=== PATIENT | female | born 1990 | race Caucasian/White ===

== ENCOUNTER 2019-07-22 11:46 | Outpatient (CLI) | payer OTHER, SELFPAY ==
[2019-07-23] MEDS: RHO(D) IMMUNE GLOBULIN 300 MCG SYRINGE IM (13:01)
== END 2019-07-22 11:47 | disposition home or self-care (01) ==
PROVIDERS: Visit Provider Obstetrics & Gynecology
DX: O02.1 Missed abortion (principal)
CPT/HCPCS: 36415; 84702; 86900; 86901; 90384; 96372; J2790

== ENCOUNTER 2019-07-24 08:31 | Emergency (ER) | payer OTHER, SELFPAY ==
--- NOTE | ~2019-07-24 | US_ITS ---
EXAMINATION: US OB <=14 wk fetus w TV DATE: 07/24/2019 11:13 INDICATION: Miscarriage TECHNIQUE: Real-time pelvic ultrasound utilizing both a transvaginal and transabdominal probe was pe rformed. The interpreting radiologist was not present for the study. COMPARISON: None. FINDINGS: The uterus measures 6.5 x 4.7 x 6.8 cm. There is a 2.4 x 0.7 x 1.7 cm anechoic fluid collection with a few thin linear internal echoes within the endocervical canal without definitive internal po le or yolk sac. There is an acutely tapered cephalad margin to the fluid with no definitive periphera l sac. The endometrial complex appears thickened with no definitive intrauterine gestational sac. The right ovary measures 1.9 x 1.9 x 2.7 cm. The left ovary measures 2.3 x 1.8 x 1.7 cm. There is no free fluid in the pelvis. IMPRESSION: 1. No definitive intrauterine gestational sac with differential including early, failed or ectopic pr egnancy. 2. Mildly complex fluid collection within the endocervical canal with no definitive yolk sac or pole. This could represent either blood or a gestational sac in the setting of in progress. Reviewed, dictated and finalized at location B. IMPRESSION: 1. No definitive intrauterine gestational sac with differential including early , failed or ectopic . 2. Mildly complex fluid collection within the endocervical canal with no defini tive yolk sac or pole. This could represent either blood or a gestational sac in the setting of in progress.
[2019-07-24 08:38] VITALS: BP 103/67; PULSE 66; RESP 16; TEMP 36.8; O2SAT 100
--- NOTE | 2019-07-24 08:47 | ED.FEMALEGU ---
HPI - Female Genitourinary General Chief complaint: Vaginal Bleeding Stated complaint: vag bleeding Time Seen by Provider: 07/24/19 08:43 Source: patient Mode of arrival: ambulatory Limitations: no limitations History of Present Illness HPI Narrative: Pt is a 29 y/o female who is 11 weeks , that presents to the ED with c/o vaginal bleeding that started 2 days ago and worsened this morning. Pt states that she has an 11 week chemical and knows that she will have a miscarriage. She states that at 0430 she started passing heavy clots. Pt notes that she was doubling up her pads and had to change them every 4 hours. She reports associated lightheadedness, dizziness, nausea, LEGGETT, and SOB upon exertion, but she denies vomiting or dysuria. Pt also notes that she gets lower ABD cramps that are intermittent and last a couple of hours. Her OBGYN is Dr. Levy and the pt called the office 2 days ago and she had blood work drawn to check her HCG levels. MD elicited complaint: vaginal bleeding Pertinent past history: prior miscarriages Onset (ago): day(s) (2) Location of symptoms: vaginal Severity: similar to previous episodes Quality of pain: cramping Consistency: intermittent Vaginal bleeding: heavy, clots and # pads per hour (4) Associated symptoms: abdominal pain, headaches, shortness of breath, nausea and other (dizziness, lightheadedness) Patient : Yes Related Data : 3 Para: 1 Total number of abortions (spontaneous and elective): 1 Home Medications Medication Instructions Recorded Confirmed No Home Medications 07/24/19 07/24/19 Allergies Allergy/AdvReac Type Severity Reaction Status Date / Time No Known Allergies Allergy Verified 04/17/19 18:18 Review of Systems Review of Systems: All systems reviewed & are unremarkable except as noted in HPI and below Cardiovascular: Cardiovascular: Reports lightheadedness Respiratory: Respiratory: Reports dyspnea on exertion Gastrointestinal: Gastrointestinal: Reports GI cramping (ABD), Reports nausea and Denies vomiting Genitourinary: Genitourinary: Reports abnormal vaginal bleeding and Denies dysuria Neurologic: Reports dizziness and Reports headache(s) [facility] Past Medical History Medical History (Updated 07/24/19 @ 11:35 by Won Sylvester MD) Miscarriage Surgical History Surgical History (Updated 07/24/19 @ 09:10 by Angela Mohamud) No significant past surgical history Family History Family History (Updated 04/17/19 @ 18:54 by SAVANNAH Ambrocio) Unknown Diabetes mellitus Social History Social History (Updated 07/24/19 @ 09:10 by Angela Mohamud) Smoking status: Never smoker Exam Const: General: healthy appearing, no acute distress and alert Orientation/consciousness: patient oriented x3 HENMT: Head: normal to inspection Neck: Neck: normal visual inspection Resp: Effort & Inspection: normal respiratory effort Auscultation: clear to auscultation bilaterally, no rales, no rhonchi and no wheezes Cardio: Rate: regular rate Rhythm: regular rhythm Heart sounds: no murmurs GI: Inspection: non-distended GI Palp: Yes abdominal tenderness (lower) and Yes Soft to palpation Skin: General skin exam: normal color Neuro: General: patient oriented x3 and moves all extremities Speech: normal speech Extrem: General: no edema Psych: Appearance: well kempt Affect: normal affect Course Course Emergency Course: Case discussed with Dr. Levy. He recommended D&C. She declined. Vital Signs Vital signs: Vital Signs Temperature 36.8 C 07/24/19 08:38 Pulse Rate 66 07/24/19 08:38 Respiratory Rate 16 07/24/19 08:38 Blood Pressure 103/67 07/24/19 08:38 Pulse Oximetry 100 07/24/19 08:38 Temperature 37.0 C 07/24/19 11:04 Pulse Rate 88 07/24/19 11:04 Respiratory Rate 16 07/24/19 11:04 Blood Pressure 100/56 L 07/24/19 11:04 Pulse Oximetry 100 07/24/19 11:04 MDM - Female Genitour
[2019-07-24] MEDS: SODIUM CHLORIDE 0.9% IV 1,000 ML 999 ML IV CONT (08:54)
[2019-07-24 09:05] LABS: Basophils Percent Auto 0.4 % (0.2-1.2); Eosinophils Absolute Auto 0.2 K/mm3 (0-0.3); Eosinophils Percent Auto 1.4 % (0-4.4); Hematocrit 34.7 % (37.0-47.0); Hemoglobin 11.3 g/dL (12.0-15.0); Immature Granulocyte Absolute 0.05 K/mm3 (0.00-0.031); Immature Granulocyte Percent A 0.5 % (0-0.5); Lymphocytes Absolute Auto 1.63 K/mm3 (0.9-3.2); Lymphocytes Percent Auto 15.6 % (18.3-44.2); Mean Corpuscular HGB Conc 32.6 g/dl (32-36); Mean Corpuscular Hemoglobin 31.2 pg (26-34); Mean Corpuscular Volume 95.9 fl (80-100); Mean Platelet Volume 10.3 fl (7.4-10.4); Monocytes Absolute Auto 0.8 K/mm3 (0.1-0.6); Monocytes Percent Auto 7.8 % (2.6-8.5); Neutrophils Absolute Auto 7.8 K/mm3 (1.3-6.7); Neutrophils Percent Auto 74.3 % (45.5-73.1); Platelet Count Result 203 k/mm3 (150-375); Red Blood Count 3.62 M/mm3 (4.2-5.4); Red Cell Distribution Width 11.9 % (11.5-14.5); White Blood Count 10.5 K/mm3 (4.5-10.0)
[2019-07-24 09:16] LABS: Blood Urea Nitrogen 7 mg/dL (7-17); Calcium 8.9 mg/dL (8.4-10.2); Carbon Dioxide 26 mmol/L (22-30); Chloride 102 mmol/L (98-107); Estimated CRCL calculation 107 ml/min; Estimated Glomerular Filt Rate > 60; Glucose 98 mg/dL (65-105); Potassium 3.7 mmol/L (3.4-5.0); Sodium 136 mmol/L (137-145)
[2019-07-24 09:21] LABS: Prothrombin Time 13.1 Seconds (11.1-14.7)
[2019-07-24 09:22] LABS: Partial Thromboplastin Time 28.4 SECONDS (22.3-36.8)
[2019-07-24 09:45] VITALS: BP 97/55; PULSE 84; RESP 16; TEMP 36.4; O2SAT 100
--- NOTE | 2019-07-24 10:43 | PC.NURSE ---
pt at ultrasound at this time
[2019-07-24 11:04] VITALS: BP 100/56; PULSE 88; RESP 16; TEMP 37; O2SAT 100
== END 2019-07-24 12:01 | disposition home or self-care (01) ==
PROVIDERS: Emergency Provider Emergency Medicine
DX: O03.4 Incomplete spontaneous abortion without complication (principal)
CPT/HCPCS: 36415; 76801; 76817; 80048; 84702; 85025; 85610; 85730; 86850; 86880; 86900; 86901; 86902; 96360; 99284; J7030

== ENCOUNTER 2019-11-11 08:03 | Outpatient (CLI) | payer OTHER, SELFPAY ==
--- NOTE | ~2019-11-11 | US_ITS ---
EXAMINATION: US OB <=14 wk fetus w TV DATE: 11/11/2019 10:08 INDICATION: Suppression of menstruation. TECHNIQUE: Real-time transabdominal and transvaginal pelvic ultrasound was performed. COMPARISON: Ultrasound 07/24/2019 FINDINGS: TRANSABDOMINAL ULTRASOUND: The uterus measures 8.4 x 7.5 x 5.4 cm. TRANSVAGINAL ULTRASOUND: There is an intrauterine gestational sac. A yolk sac is identified. The fet al crown rump length measures 1.0 cm, which correlates with an estimated gestational age of 7 weeks a nd 1 day(s) (+/-) 5 day(s). heart motion is identified measuring 157 beats per minute (bpm) by M-mode Doppler. The right ovary measures 2.5 x 2.9 x 1.5 cm. The left ovary measures 3.0 x 2.8 x 2.7 cm. There is no free fluid in the pelvis. IMPRESSION: 1. Single living intrauterine gestation with estimated date of delivery of 06/28/2020. Reviewed, dictated and finalized at location A. IMPRESSION: 1. Single living intrauterine gestation with estimated date of delivery of 06/28.
== END 2019-11-11 08:04 | disposition home or self-care (01) ==
PROVIDERS: Visit Provider Obstetrics & Gynecology
DX: Z34.91 Encounter for supervision of normal pregnancy, unspecified, first trimester (principal); Z3A.00 Weeks of gestation of pregnancy not specified
CPT/HCPCS: 76801; 76817

== ENCOUNTER 2019-12-07 09:01 | Outpatient (CLI) | payer OTHER, SELFPAY ==
[2019-12-07] MEDS: RHO(D) IMMUNE GLOBULIN 300 MCG SYRINGE IM (17:15)
== END 2019-12-07 09:02 | disposition home or self-care (01) ==
PROVIDERS: Visit Provider Obstetrics & Gynecology
DX: O20.9 Hemorrhage in early pregnancy, unspecified (principal); Z3A.00 Weeks of gestation of pregnancy not specified
CPT/HCPCS: 36415; 85461; 90384; 96372; J2790

== ENCOUNTER 2020-04-06 11:07 | Outpatient (RCR) | payer OTHER, SELFPAY ==
[2020-04-06 12:39] LABS: Hematocrit 34.8 % (37.0-47.0); Hemoglobin 11.7 g/dL (12.0-15.0); Mean Corpuscular HGB Conc 33.6 g/dl (32-36); Mean Corpuscular Hemoglobin 32.9 pg (26-34); Mean Corpuscular Volume 97.8 fl (80-100); Mean Platelet Volume 9.5 fl (7.4-10.4); Platelet Count Result 197 k/mm3 (150-375); Red Blood Count 3.56 M/mm3 (4.2-5.4); Red Cell Distribution Width 13.7 % (11.5-14.5); White Blood Count 10.4 K/mm3 (4.5-10.0)
[2020-04-06 12:50] LABS: Glucose 1 Hour PP 50gm Dose 147 mg/dL
[2020-04-06 13:32] LABS: HIV 1/2 Ab P24 Ag Result Negative (Negative)
[2020-04-06] MEDS: RHO(D) IMMUNE GLOBULIN 300 MCG SYRINGE IM (17:51)
== END 2020-07-05 23:59 | disposition home or self-care (01) ==
LOC: ANHLAB 11:07
PROVIDERS: Visit Provider Obstetrics & Gynecology
DX: Z29.13 Encounter for prophylactic Rho(D) immune globulin (principal); Z11.4 Encounter for screening for human immunodeficiency virus [HIV]; O36.0990 Maternal care for other rhesus isoimmunization, unspecified trimester, not applicable or unspecified; Z3A.00 Weeks of gestation of pregnancy not specified
CPT/HCPCS: 36415; 82947; 85027; 85461; 86703; 90384; 96372; G0432; J2790

== ENCOUNTER 2020-04-08 08:04 | Outpatient (CLI) | payer OTHER, SELFPAY ==
[2020-04-08 08:35] LABS: Glucose Fasting Gestational 87 mg/dL (>/=95)
[2020-04-08 10:24] LABS: Glucose 1 Hour Gest 191 mg/dL (>/=180)
[2020-04-08 11:44] LABS: Glucose 2 Hour Gest 170 mg/dL (>/= 155)
[2020-04-08 12:15] LABS: Glucose 3 Hour Gest 61 mg/dL (>/=140)
== END 2020-04-08 08:05 | disposition home or self-care (01) ==
PROVIDERS: Visit Provider Obstetrics & Gynecology
DX: R73.09 Other abnormal glucose (principal)
CPT/HCPCS: 36415; 82951; 82952

== ENCOUNTER 2020-06-15 09:31 | Outpatient (RCR) | payer OTHER, BC, SELFPAY ==
[2020-05-04 12:00] VITALS: BP 110/67; PULSE 71
[2020-05-11 10:29] VITALS: BP 110/66; PULSE 91
[2020-05-18 11:17] VITALS: BP 112/59; PULSE 85
[2020-05-25 10:38] VITALS: BP 107/58; PULSE 85
[2020-06-01 10:50] VITALS: BP 117/63; PULSE 77
--- NOTE | 2020-06-01 12:05 | PC.NURSE ---
Dr. Castro on unit and informed of U/S results.
[2020-06-08 11:08] VITALS: BP 118/67; PULSE 89
--- NOTE | ~2020-06-15 | US_ITS ---
US OB limited w BPP DATE: 05/25/2020 10:27 INDICATION: Gestational diabetes TECHNIQUE: Real-time imaging and Doppler analysis COMPARISON: 05/18/2020 Limited obstetrical ultrasound with biophysical profile FINDINGS: Live quiroz intrauterine gestation, fetus in longitudinal lie, vertex presentation. Feta l heart rate of 141 bpm. Posterior fundal placenta. Amniotic fluid index measures 16.4 cm, within normal range. BIOPHYSICAL PROFILE reported by mobile service rv technician: breathin out of 2 movement: 2 out of 2 tone: 2 out of 2 Amniotic fluid pocket: 2 out of 2 Total score: 8 out of 8 IMPRESSION: Normal biophysical profile score of 8 out of 8 Reviewed, dictated and finalized at Location A. Reviewed, dictated and finalized at location A. NG MACHINE FEEDER
--- NOTE | ~2020-06-15 | US_ITS ---
EXAMINATION: US OB BPP wo non-stress DATE: 06/15/2020 10:42 INDICATION: Gestational diabetes TECHNIQUE: Real-time pelvic ultrasound was performed. The interpreting radiologist was not present fo r the study. COMPARISON: None. FINDINGS: There is a single living fetus in vertex presentation. The placenta is posterior fundal. heart rate is 134 beats per minute (bpm). Biophysical profile performed by the technologist: breathing (30 sec sustained breathing in 30 minutes): 2 out of 2 movement (3 gross body movements in 30 minutes): 2 out of 2 tone (one episode of loqnjyp-rdmbzhora-nqxdszw limb movement): 2 out of 2 Amniotic fluid pocket (2 cm): 2 out of 2 Total score: 8 out of 8 IMPRESSION: 1. Single living fetus in vertex presentation with heart rate of 134 bpm. 2. Biophysical profile 8 out of 8. Reviewed, dictated and finalized at location A. N STYLIST
--- NOTE | ~2020-06-15 | US_ITS ---
EXAMINATION: US OB BPP wo non-stress EXAM DATE: 05/04/2020 11:56 INDICATION: Gestational diabetes. 3rd trimester. TECHNIQUE: Pelvic obstetrical transabdominal sonogram was performed by a technologist. There are mu ltiple grayscale and Doppler images available for interpretation. FINDINGS: There is a single fetus identified in vertex presentation with a heart rate of 133 beats pe r minute. The placenta is located in the posterior position. There is no sonographic evidence of ret roplacental hemorrhage identified. There is subjectively expected amount of amniotic fluid. BIOPHYSICAL PROFILE (performed by the technologist) breathing (30 sec sustained breathing in 30 minutes): 2 out of 2 movement (3 gross body movements in 30 minutes): 2 out of 2 tone (one episode of lgthoqr-rgapaftdx-odckwlz limb movement): 2 out of 2 Amniotic fluid pocket (2 cm): 2 out of 2 Total score: 8 out of 8 IMPRESSION: 1. Single fetus with heart rate of 133 bpm. 2. Normal biophysical profile score of 8 out of 8. Reviewed, dictated and finalized at location B. AND OUT CIGAR MAKER HAND
--- NOTE | ~2020-06-15 | US_ITS ---
EXAMINATION: US OB BPP wo non-stress DATE: 05/11/2020 10:28 INDICATION: Gestational diabetes. Third trimester. History of subchorionic hemorrhage. TECHNIQUE: Real-time pelvic ultrasound was performed. COMPARISON: Ultrasound 05/04/2020 FINDINGS: There is a single living fetus in vertex presentation. The placenta is posterior. heart rate i s 147 beats per minute (bpm). Biophysical profile performed by the technologist: breathing (30 sec sustained breathing in 30 minutes): 2 out of 2 movement (3 gross body movements in 30 minutes): 2 out of 2 tone (one episode of xowozoa-mfuspxcin-cdativx limb movement): 2 out of 2 Amniotic fluid pocket (2 cm): 2 out of 2 Total score: 8 out of 8 IMPRESSION: 1. Single living fetus in vertex presentation. 2. Biophysical profile 8 out of 8. Reviewed, dictated and finalized at location B. SSION SPECIALIST
--- NOTE | ~2020-06-15 | US_ITS ---
EXAMINATION: US OB limited w BPP DATE: 05/18/2020 10:42 INDICATION: Maternal gestational diabetes. Subchorionic hematoma. TECHNIQUE: Real-time pelvic ultrasound was performed. The interpreting radiologist was not present fo r the study. COMPARISON: 05/11/2020 FINDINGS: There is a single living fetus in vertex presentation. The placenta is posterior fundal. Small cresc entic hypoechoic region along the cephalad margin of the placenta consistent with a very small subcho rionic hematoma which measures 1.8 x 0.6 x 0.3 cm. heart rate is 141 beats per minute (bpm). No rmal amniotic fluid index of 15.4 cm (5th%-95%: 8.1-24.8 cm at 34 weeks estimated gestational age). Biophysical profile performed by the technologist: breathing (30 sec sustained breathing in 30 minutes): 2 out of 2 movement (3 gross body movements in 30 minutes): 2 out of 2 tone (one episode of oezppou-xeswbwktq-osyukax limb movement): 2 out of 2 Amniotic fluid pocket (2 cm): 2 out of 2 Total score: 8 out of 8 IMPRESSION: 1. Single living fetus in vertex presentation with heart rate of 141 bpm. 2. Biophysical profile 8 out of 8. 3. Very small subchorionic hematoma. 4. Normal amniotic fluid index of 15.4 cm. Reviewed, dictated and finalized at location B. OR ELECTRICAL ENGINEER
--- NOTE | ~2020-06-15 | US_ITS ---
EXAMINATION: US OB follow up w BPP DATE: 06/01/2020 10:41 INDICATION: Evaluate growth and amniotic fluid index TECHNIQUE: Real-time ultrasound of the pelvis was performed. The interpreting radiologist was not pre sent for the study. COMPARISON: Comparison to multiple prior studies sequentially, with oldest reviewed study dated 11/10. FINDINGS: There is a single living fetus in vertex presentation. The placenta is posterior. cardiac acti vity and movement are noted. heart rate is 1:30 beats per minute (bpm). The amniotic flui d index is 17 cm, which is normal. The following biometric data were obtained: BPD: 89 cm corresponds to gestational age 36 weeks 0 day(s). Head circumference: 313 cm corresponds to gestational age 35 weeks 1 day(s). Abdominal circumference: 310 cm corresponds to gestational age 35 weeks 0 day(s). Femur length: 69 cm corresponds to gestational age 35 weeks 1 day(s). Head circumference to abdominal circumference ratio: 1.01, normal for gestational age is 0.93-1.1. Estimated weight: 2607 g plus or minus 391 g, 16.9 percentile. Biophysical profile performed by the technologist: breathing (30 sec sustained breathing in 30 minutes): 2 out of 2 movement (3 gross body movements in 30 minutes: 2 out of 2 tone (one episode of qnbntio-yxcamicgf-ahlmisx limb movement): 2 out of 2 Amniotic fluid pocket (2 cm): 2 out of 2 Total score: 8 out of 8 IMPRESSION: 1. Single living fetus in vertex presentation with heart rate of 130 bpm. 2. Normal placenta. 3. Biophysical profile 8 out of 8. 4. Gestational age by initial ultrasound of 36 weeks 1 day(s) with ultrasound estimated date of toni serna ([facility]) of 06/28/2010. Appropriate interval growth. Reviewed, dictated and finalized at location B. LANE GASTANK LINER ASSEMBLER IMPRESSION: 1. Single living fetus in vertex presentation with heart rate of 130 bpm. 2. Normal placenta. 3. Biophysical profile 8 out of 8. 4. Gestational age by initial ultrasound of 36 weeks 1 day(s) with ultrasound e stimated date of delivery ([facility]) of 06/28/2010. Appropriate interval growt h.
--- NOTE | ~2020-06-15 | US_ITS ---
US OB limited, US OB BPP wo non-stress DATE: 06/08/2020 10:49 INDICATION: Gestational diabetes mellitus TECHNIQUE: Real-time imaging and Doppler analysis. Biophysical profile. COMPARISON: obstetrical ultrasound with biophysical profile FINDINGS: Live quiroz intrauterine gestation, fetus in vertex presentation, longitudinal lie. Post erior placenta. cardiac motion is noted with Doppler heart rate of 138 bpm. Subjectively normal amount of amniotic fluid. Amniotic fluid index measures 10.2 cm. (5th percentile MOLLY: 7.5 cm; 95th percentile MOLLY: 24.4 cm). BIOPHYSICAL PROFILE reported by lead quality control technician: breathin out of 2 movement: 2 out of 2 tone: 2 out of 2 Amniotic fluid pocket: 2 out of 2 Total score: 8 out of 8 IMPRESSION: Normal biophysical profile score of 8 out of 8 MOLLY: 10.2 cm, within lower limits of normal range of 7.5-24.4 cm Reviewed, dictated and finalized at Location A. Reviewed, dictated and finalized at location B. ORATE OPERATIONS COMPLIANCE MANAGER IMPRESSION: Normal biophysical profile score of 8 out of 8 MOLLY: 10.2 cm, within lower limits of normal range of 7.5-24.4 cm
[2020-06-15 10:45] VITALS: BP 117/73; PULSE 82
== END 2020-06-22 07:57 | disposition home or self-care (01) ==
LOC: ANHOBOP 09:31
PROVIDERS: Visit Provider Obstetrics & Gynecology
DX: O24.419 Gestational diabetes mellitus in pregnancy, unspecified control (principal); Z3A.32 32 weeks gestation of pregnancy; Z3A.33 33 weeks gestation of pregnancy; O41.8X30 Other specified disorders of amniotic fluid and membranes, third trimester, not applicable or unspecified; Z3A.34 34 weeks gestation of pregnancy; Z3A.35 35 weeks gestation of pregnancy; Z3A.36 36 weeks gestation of pregnancy; Z3A.37 37 weeks gestation of pregnancy; Z3A.38 38 weeks gestation of pregnancy
CPT/HCPCS: 59025; 76815; 76816; 76819

== ENCOUNTER 2020-06-20 06:35 | Inpatient (IN) | payer OTHER, BC, SELFPAY ==
[2020-06-20] VITALS (80 sets, daily range): BP systolic 97–249; BP diastolic 40–230; PULSE 31–196; RESP 16; TEMP 36.6–36.8; O2SAT 79–100; BMI 27.0
--- NOTE | 2020-06-20 06:35 | LDADM ---
This patient, Radha Colon, was admitted to Labor/Delivery/Recovery 104 on 06/20/20 at 06:35. Plans for labor, pain management and were discussed with patient. Patient/family oriented to hospital policies and general routines including ID bracelet, bed and alarms, visiting hours, pain management, procedures, bathroom and other care routines, personal items, smoking policy, room service/diet and guest tray routines, security routines, and visiting hours. Patient/Family are encouraged to report perceived risks to care and to ask questions if they do not understand what they are told or what they should do. See OBIX for further documentation.
--- OUTSIDE RECORDS SUMMARY | 2020-06-20 06:41 | XMS_ITS ---
:1990 Author Care Team Providers Name Role Phone [facility] Primary Care Provider Unavailable Allergies Code Code System Name Reaction Severity Status Onset NKDA ? Medications Name Status Start Date Stop Date ? ? Accu-Chek Guide Glucose Meter Active ? No t available USE DIRECTED Accu-Chek Guide test strips Active ? Not available Take 112 strips 4 times a day by miscell. route. Accu-Chek Softclix Lancets Active ? Not a vailable Afluria Qd (36 mos up)(PF)60 mcg (15 mcg x4)/0.5 mL IM s yringe Active ? Not available ADM 0.5ML IM UTD alcohol sterile prep pads 100's Active ? Not available APPLY 1 PAD BY TOPICAL ROUTE DIRECTED alcohol swabs Active ? Not available Apply 1 pad by topical route. Boostrix Tdap 2.5 Lf unit-8 mcg-5 Lf/0.5 mL intramuscular syring e Active ? Not available ADMINISTER 0.5ML IN THE MUSCLE DIRECTED clindamycin 1 % lotion Unknown ? Not avail able APPLY QAM TO ACNE clindamycin phosphate 1 % topical solution Unknown ? Not available APPLY TO ACNE D AT 4 PM. clomiphene citrate 50 mg tablet Completed ? 06/11/2019 TK 1 T PO QD X 5 DAYS Finacea 15 % topical gel Unknown ? Not mikhail ilable APPLY AA QHS UTD ibuprofen 400 mg tablet Unknown ? Not avai lable oxycodone-acetaminophen 5 mg-325 mg Unknown ? Not available tablet Notes: PNV; Fe supplement BID Problems Name Status O
--- OUTSIDE RECORDS SUMMARY | 2020-06-20 06:42 | XMS_ITS | Encounter Summary ---
:1990 Author Reason for Visit return OB visit Assessment and Plan 1. Routine care 2. Gestational diabetes mellitus 3. Subchorionic hematoma Discussion Note: None recorded.Patient educational handouts: No information available. Plan of Care Reminders Provider Appointments None ? ? recorded. Lab None ? ? recorded. Referral None ? ? recorded. Procedures None ? ? recorded. Surgeries None ? ? recorded. Imaging None ? ? recorded. Medications Name Start Date ? ? Accu-Chek Guide Glucose Meter ? USE DIRECTED Accu-Chek Guide test strips ? Take 112 strips 4 times a day by miscell. route. Accu-Chek Softclix Lancets ? Afluria Qd 2019- (36 mos up)(PF)60 mcg (15 mcg x4)/0 .5 mL IM syringe ? ADM 0.5ML IM UTD alcohol sterile prep pads 100's ? APPLY 1 PAD BY TOPICAL ROUTE DIRECTED alcohol swabs ? Apply 1 pad by topical route. Boostrix Tdap 2.5 Lf unit-8 mcg-5 Lf/0.5 mL intramuscu lar syringe ? ADMINISTER 0.5ML IN THE MUSCLE DIRECTED Notes: PNV; Fe supplement BID Medications Administered None recorded. Vitals Weight Blood Pressure 179 lbs 116/78 mm[Hg] Results Lab Results
--- OUTSIDE RECORDS SUMMARY | 2020-06-20 06:42 | XMS_ITS | Encounter Summary ---
:1990 Author Reason for Visit return OB visit Assessment and Plan 1. Routine care Discussion Note: None recorded.Patient educational handouts: No [...] Administered None recorded. Vitals Weight Blood Pressure 184 lbs 112/62 mm[Hg] Results Lab Results None recorded. Allergies Code Code System Name Reaction Severity Onset
--- OUTSIDE RECORDS SUMMARY | 2020-06-20 06:42 | XMS_ITS | Encounter Summary ---
:1990 Author Reason for Visit return OB visit Assessment and Plan 1. Routine care 2. Gestational diabetes mellitus 3. Marginal placental hemorrhage Discussion Note: None recorded.Patient educational handouts: No [...] recorded. Vitals Weight Blood Pressure 179 lbs 118/72 mm[Hg] Results Lab Results
--- OUTSIDE RECORDS SUMMARY | 2020-06-20 06:42 | XMS_ITS | Encounter Summary ---
:1990 Author Reason for Visit return OB visit Assessment and Plan 1. Gestational diabetes mellitus 2. Subchorionic hematoma Discussion Note: None recorded.Patient educational [...] route. Accu-Chek Softclix Lancets ? Afluria Qd (36 mos up)(PF)60 mcg (15 mcg x4)/0 [...] Administered None recorded. Vitals Weight Blood Pressure 177.8 lbs 120/72 mm[Hg] Results Lab Results None recorded. Allergies Code Code S
--- OUTSIDE RECORDS SUMMARY | 2020-06-20 06:42 | XMS_ITS | Encounter Summary ---
:1990 Author Reason for Visit return OB visit Assessment and Plan 1. Routine care ? streptococcus group B, cul ture, vaginal or rectal 2. Gestational diabetes mellitus ? US, obstetric, 3rd trimest er Discussion Note: None recorded.Patient educational handouts: No information available. Plan of Care Reminders Provider Appointments None recorded. ? ? Lab Streptococcus And erson Group B, Culture, Vaginal [facility] or Rectal Referral None recorded. ? ? Procedures None recorded. ? ? Surgeries None recorded. ? ? Imaging US, Obstetric, [facility] 3Rd Trimester 05/27/2020 [facility] ([facility] Scheduling) Medications Name Start Date ? ? Accu-Chek [...]
--- OUTSIDE RECORDS SUMMARY | 2020-06-20 06:42 | XMS_ITS | Encounter Summary ---
:1990 Author Reason for Visit return OB visit Assessment and Plan 1. Routine care ? glucose tolerance test, ge stational, 1-hour ? HIV (1+2) Ab screen, serum ? CBC ? Rh immune globulin screeni ng Discussion Note: None recorded.Patient educational handouts: No information available. Plan of Care Reminders Provider Appointments None ? ? recorded. Lab Glucose [facility] Tolerance Test, 03/22/2020 (Lab) Gestational, 1-Hour ? HIV (1+2) Ab [facility] Screen, Serum 03/22/2020 (Lab) ? [facility] 03/22/2020 (Lab) ? Rh Immune [facility] Globulin Screening 03/22/2020 (Lab) Referral None ? ? recorded. Procedures None ? ? recorded. Surgeries None ? ? recorded. Imaging None ? ? recorded. Medications Name Start Date ? ? Accu-Chek Guide Glucose Meter ? USE DIRECTED Accu-Chek Guide test strips ? Take 112 strips 4 times a day by miscell. route.
--- OUTSIDE RECORDS SUMMARY | 2020-06-20 06:42 | XMS_ITS | Encounter Summary ---
[...] supplement BID Medications Administered None recorded. Vitals Height Weight Blood Pressure 5 ft 8 in 185 lbs 120/77 mm[Hg] Results Lab Results None recorded. Allergies Code Code System Name Reaction Severity Onset
--- OUTSIDE RECORDS SUMMARY | 2020-06-20 06:42 | XMS_ITS | Encounter Summary ---
:1990 Author Reason for Visit return OB visit Assessment and Plan 1. Routine care 2. Gestational diabetes mellitus ? induction of labor (PROC) Discussion Note: None recorded.Patient educational handouts: No information available. Plan of Care Reminders Provider Appointments None ? ? recorded. Lab None ? ? recorded. Referral None ? ? recorded. Procedures Induction of [facility] Labor (PROC) 06/20/2020 (Admitting) Surgeries None ? ? recorded. Imaging None [...] Weight Blood Pressure 5 ft 8 in 183 lbs 104/60 mm[Hg]
[2020-06-20 07:24] LABS: Basophils Percent Auto 0.4 % (0.2-1.2); Eosinophils Absolute Auto 0.1 K/mm3 (0-0.3); Eosinophils Percent Auto 0.8 % (0-4.4); Hematocrit 38.5 % (37.0-47.0); Hemoglobin 13.4 g/dL (12.0-15.0); Immature Granulocyte Absolute 0.05 K/mm3 (0.00-0.031); Immature Granulocyte Percent A 0.6 % (0-0.5); Lymphocytes Absolute Auto 0.94 K/mm3 (0.9-3.2); Lymphocytes Percent Auto 11.2 % (18.3-44.2); Mean Corpuscular HGB Conc 34.8 g/dl (32-36); Mean Corpuscular Hemoglobin 33.9 pg (26-34); Mean Corpuscular Volume 97.5 fl (80-100); Mean Platelet Volume 10.7 fl (7.4-10.4); Monocytes Absolute Auto 0.8 K/mm3 (0.1-0.6); Monocytes Percent Auto 9.4 % (2.6-8.5); Neutrophils Absolute Auto 6.5 K/mm3 (1.3-6.7); Neutrophils Percent Auto 77.6 % (45.5-73.1); Platelet Count Result 153 k/mm3 (150-375); Red Blood Count 3.95 M/mm3 (4.2-5.4); Red Cell Distribution Width 12.6 % (11.5-14.5); White Blood Count 8.4 K/mm3 (4.5-10.0)
[2020-06-20 07:26] LABS: Glucose Point of Care 83 (65-105)
[2020-06-20] MEDS: LACTATED RINGERS 1,000 ML 125 ML IV CONT ×2 (07:35→11:36)
[2020-06-20] MEDS: AMPICILLIN 2 GM/NS 100 ML 2 GM/100 ML BAG IVPB (07:35)
[2020-06-20] MEDS: OXYTOCIN 30 UNITS/NS 500 ML 30 UNITS/500 ML BAG IV CONT (07:36)
[2020-06-20 09:56] LABS: Rapid Plasma Reagin Non-Reactive (NonReactive)
[2020-06-20] MEDS: AMPICILLIN 1 GM/NS 50 ML 1 GM/50 ML BAG IVPB (11:36)
--- NOTE | 2020-06-20 12:10 | WPDANESEPP ---
Anes - Eval Pre Procedure Procedure: LAbor epidural Date/Time: 06/20/20 12:10 Surgeon: Matthew Preop Diagnosis: Abd pain with contractions Pre Op Diagnosis: Induction of Labor Patient Data Age: 30 Gender: F Height: 5 ft 9 in Weight: 83 kg Last Vital Signs Temp 98.3 F 06/20/20 07:30 Pulse 65 06/20/20 12:10 BP 126/71 06/20/20 12:10 Pulse Ox 100 06/20/20 12:06 Allergies Allergy/AdvReac Type Severity Reaction Status Date / Time No Known Allergies Allergy Verified 05/31/20 12:39 Home Medications Medication Instructions Recorded Confirmed Type PNV cmb#95-ferrous fumarate-FA 1 tablet PO DAILY 05/04/20 06/15/20 History [] ferrous sulfate 325 mg PO BID 05/04/20 06/15/20 History Laboratory Tests 06/20/20 06/20/20 06/20/20 07:17 07:17 07:18 WBC 8.4 K/mm3 K/mm3 (4.5-10.0) RBC 3.95 M/mm3 L M/mm3 (4.2-5.4) Hgb 13.4 g/dL g/dL (12.0-15.0) Hct 38.5 % % (37.0-47.0) MCV 97.5 fl fl (80-100) MCH 33.9 pg pg (26-34) MCHC 34.8 g/dl g/dl (32-36) RDW 12.6 % % (11.5-14.5) Plt Count 153 k/mm3 k/mm3 (150-375) MPV 10.7 fl H fl (7.4-10.4) Immature Gran % (Auto) 0.6 % H % (0-0.5) Neut % (Auto) 77.6 % H % (45.5-73.1) Lymph % (Auto) 11.2 % L % (18.3-44.2) [place] % (Auto) 9.4 % H % (2.6-8.5) Eos % (Auto) 0.8 % % (0-4.4) Baso % (Auto) 0.4 % % (0.2-1.2) Lymph # (Auto) 0.94 K/mm3 K/mm3 (0.9-3.2) [place] # (Auto) 0.8 K/mm3 H K/mm3 (0.1-0.6) Eos # (Auto) 0.1 K/mm3 K/mm3 (0-0.3) Baso # (Auto) 0.0 K/mm3 K/mm3 (0.0-0.1) Abs Immat Gran (auto) 0.05 K/mm3 H K/mm3 (0.00-0.031) Absolute Neuts (auto) 6.5 K/mm3 K/mm3 (1.3-6.7) Absolute Nucleated RBC 0.0 K/mm3 K/mm3 (0.0-0.012) Nucleated RBC % 0.0 % % (0.0-0.2) POC Capillary Glucose RPR Non-reactive (NonReactive) Blood Type O Negative Antibody Screen Negative 06/20/20 07:23 WBC RBC Hgb Hct MCV MCH MCHC RDW Plt Count MPV Immature Gran % (Auto) Neut % (Auto) Lymph % (Auto) [place] % (Auto) Eos % (Auto) Baso % (Auto) Lymph # (Auto) [place] # (Auto) Eos # (Auto) Baso # (Auto) Abs Immat Gran (auto) Absolute Neuts (auto) Absolute Nucleated RBC Nucleated RBC % POC Capillary Glucose 83 mg/dl mg/dl (65-105) RPR Blood Type Antibody Screen Patient hx anesthesia problems: none Family hx anesthesia problems: none PMFSH Past Medical History Medical History (Updated 06/20/20 @ 12:11 by Preston Kruger CRNA) Gestational diabetes Miscarriage Surgical History Surgical History No significant past surgical history Family History Family History Grandparent Diabetes type 2, controlled Lung cancer Breast cancer Leukemia Mother Breast cancer Social History Social History (Updated 07/24/19 @ 09:10 by Angela Mohamud) Smoking status: Never smoker Substance use: never Spiritual care concerns: No Exam Day of Procedure 06/20/20 12:10 Patient weight: normal Heart: regular rate and rhythm Lungs: clear to auscultation Airway: Mallampati scale class II Neurological: alert and oriented
--- NOTE | 2020-06-20 12:51 | PM.IMHP ---
H&P: HPI History of Present Illness Date/Time: 06/20/20 12:51 Chief Complaint: Induction of labor Narrative: Radha Colon is a 30 year old female at 39w1d presenting or schedule induction of labor. was complicated by gestational diabetes which was diet controlled as well as subchorionic hemorrhage but she was stable and bleeding was limited to early . Review of Systems Constitutional: Constitutional: Reports no additional constitutional complaints Eyes: Eyes: Reports no additional eye complaints ENT: Reports system reviewed and no additional complaints, except as documented Cardiovascular: Cardiovascular: Reports no additional cardiovascular complaints Respiratory: Respiratory: Reports no additional respiratory complaints Gastrointestinal: Gastrointestinal: Reports no additional gastrointestinal complaints Genitourinary: Genitourinary: Reports no additional female genitourinary complaints Musculoskeletal: Musculoskeletal: Reports no additional musculoskeletal complaints Integumentary/Breasts: Skin/Breast: Reports system reviewed and no additional complaints, except as docu Neurologic: Reports system reviewed and no additional complaints, except as documented Psychiatric: Psychiatric: Reports no additional psychiatric complaints Endocrine: Endocrine: Reports no additional endocrine complaints Hematologic/Lymphatic: Hematologic/Lymphatic: Reports no additional hematologic/lymphatic complaints Allergic/Immunologic: Allergic/Immunologic: Reports no additional allergic/immunologic complaints PMFSH Past Medical History Medical History Gestational diabetes Miscarriage Surgical History Surgical History No significant past surgical history Family History Family History Grandparent Diabetes type 2, controlled Lung cancer Breast cancer Leukemia Mother Breast cancer Social History Social History (Updated 07/24/19 @ 09:10 by Angela Mohamud) Smoking status: Never smoker Substance use: never Spiritual care concerns: No Meds Home Medications and Allergies Home Medications Medication Instructions Recorded Confirmed Type PNV cmb#95-ferrous fumarate-FA 1 tablet PO DAILY 05/04/20 06/15/20 History [] ferrous sulfate 325 mg PO BID 05/04/20 06/15/20 History Allergies Allergy/AdvReac Type Severity Reaction Status Date / Time No Known Allergies Allergy Verified 05/31/20 12:39 Vital Signs Vital Signs - 24 hr 06/20/20 07:02 06/20/20 07:16 06/20/20 07:30 Temperature 36.8 C Pulse Rate 93 82 Blood Pressure 117/72 114/73 Pulse Oximetry 06/20/20 07:31 06/20/20 07:46 06/20/20 08:01 Temperature Pulse Rate 76 76 80 Blood Pressure 120/72 116/67 114/71 Pulse Oximetry 06/20/20 08:16 06/20/20 08:31 06/20/20 08:46 Temperature Pulse Rate 95 77 75 Blood Pressure 128/76 123/67 121/73 Pulse Oximetry 06/20/20 09:01 06/20/20 09:16 06/20/20 09:31 Temperature Pulse Rate 71 76 71 Blood Pressure 119/72 123/71 123/67 Pulse Oximetry 06/20/20 09:46 06/20/20 10:01 06/20/20 10:16 Temperature Pulse Rate 86 92 73 Blood Pressure 123/76 130/79 124/69 Pulse Oximetry 06/20/20 10:31 06/20/20 10:46 06/20/20 11:01 Temperature Pulse Rate 87 75 75 Blood Pressure 117/81 123/75 126/72 Pulse Oximetry 06/20/20 11:14 06/20/20 11:16 06/20/20 11:17 Temperature Pulse Rate 82 75 Blood Pressure 133/78 120/79 Pulse Oximetry 100 06/20/20 11:21 06/20/20 11:26 06/20/20 11:27 Temperature Pulse Rate 79 75 Blood Pressure 126/70 121/69 Pulse Oximetry 98 100 06/20/20 11:29 06/20/20 11:31 06/20/20 11:34 Temperature Pulse Rate 76 79 75 Blood Pressure 124/70 127/73 119/74 Pulse Oximetry 100 06/20/20 11:36 06/20/20 11:37 06/20/20
[2020-06-20 13:01] LABS: Glucose Point of Care 70 (65-105)
--- NOTE | 2020-06-20 13:13 | WPDHPUPDATE1 ---
History and Physical Update Update Date/Time: 06/20/20 13:13 History and Physical has been reviewed, including an updated exam of the patient. There are NO changes in the patient's condition. Risks, benefits, and alternatives have been discussed and questions answered. Patient agrees to proceed with procedure.
--- NOTE | 2020-06-20 15:32 | P.PCNOB_ITS ---
OB - Delivery Note Procedure Delivery date: 06/20/20 Procedure: Normal spontaneous vaginal delivery Intrapartal events: None Induction method: AROM and per pitocin protocol Delivery monitor: external FHT and external uterine Route of delivery: Laceration Description: Perineal - 2nd Degree Delivery repair: vicryl Specimen: Yes Quantitative Blood Loss (ml): 300 Anesthesia type: Epidural Narrative: Once she was noted to be complete and ready to push, the labor bed was broken down and legs were placed in stirrups for support. With contractions and maternal efforts, the presented in OA position. The head was del ivered. Checked for nuchal cord, no nuchal cord noted. Gentle downward traction was applied and the anterior shoulder delivered without issues, followed by the posterior shoulder and rest of the body. was vigorous and crying, so delayed cord clamping of approximately 1 minute was performed. The cord was clamped and cut. Cord gasses collected. Placenta was delivered spontaneously with gentle cord traction. IV oxytocin administered and fundal massage applied. Exam was performed to identify any lacerations. 2nd degree perineal laceration was repaired with 2-0 Vicryl. Good hemostasis noted. Patient tolerated the procedure well. All instrument and sponge counts were correct at the end of the procedure. [place] Baby Date of : 06/20/20 Time of : 15:04 Weeks of gestation at delivery: 39 Infant gender: Male Weight (pounds): 8 Weight (ounces): 10 presentation: vertex position: Left Occiput Anterior Placenta delivery description: Spontaneous cord vessel description: 3 Vessels score one minute: 9 score five minutes: 9
[2020-06-20] MEDS: OXYTOCIN 30 UNITS/NS 500 ML 30 UNITS/500 ML BAG 125 UNITS IV CONT (15:51)
[2020-06-20] MEDS: WITCH HAZEL 40 PADS 1 PAD TOPICAL (17:51)
[2020-06-20] MEDS: BENZOCAINE 20% AER SPR (*SP) 56 GM CAN 1 SPRAY TOPICAL (17:51)
--- NOTE | 2020-06-20 18:44 | OBPPTRN ---
Patient transferred to post room #284 via wheelchair. Support person present. Oriented to unit, room, information board, rooming in, admission packet and security measures. Patient verbalizes understanding.
[2020-06-20] MEDS: IBUPROFEN 600 MG TABLET PO (18:53)
[2020-06-21 04:00] VITALS: BP 105/60; PULSE 67; RESP 16; TEMP 36.7; O2SAT 98
[2020-06-21] MEDS: IBUPROFEN 600 MG TABLET PO ×2 (04:47→14:12)
[2020-06-21 04:51] LABS: Hematocrit 33.4 % (37.0-47.0); Hemoglobin 11.3 g/dL (12.0-15.0)
[2020-06-21] MEDS: DOCUSATE SODIUM 100 MG CAPSULE PO (07:30)
[2020-06-21] MEDS: MULTIVIT/MIN/PREN/FOL AC/IRON TABLET 1 TAB PO (07:30)
[2020-06-21] MEDS: BENZOCAINE 20% AER SPR (*SP) 56 GM CAN 1 SPRAY TOPICAL (07:30)
[2020-06-21 08:00] VITALS: BP 105/65; PULSE 76; RESP 18; TEMP 36.8; O2SAT 99
--- NOTE | 2020-06-21 08:13 | WPDANLDPN2 ---
Anes-Prog Note L&D Date/Time: 06/21/20 08:13 Comfortable throughout: labor and delivery Neuraxial method: epidural Epidural/Spinal procedure site: clean & non-tender Neuro status: Neuro function grossly intact. Cardiovascular status: normal Respiratory status: normal Airway patency: baseline Mental status: baseline Post-Op hydration status: normal Vital Signs: Last Vital Signs Temp 36.7 C 06/21/20 04:00 Pulse 67 06/21/20 04:00 Resp 16 06/21/20 04:00 BP 105/60 06/21/20 04:00 Pulse Ox 98 06/21/20 04:00 Pain score (VAS): 3 I/O: Intake & Output 06/20/20 06/21/20 06/21/20 23:59 07:59 15:59 Intake Total 500 Balance 500 Post-procedural complaints: none Patient feedback: Patient satisfied with anesthetic care.
--- NOTE | 2020-06-21 10:30 | PC.NURSE ---
Consulted with patient, mother reports infant fed well first two feedings, then sleepy and bottle fed during the night a few times. Mother pumped and bottle fed with first child. was circumcised within an hour and sleepy. Assured parents this is normal. Reviewed feeding cues, frequencies, duration of feedings, feeding elimination flow sheet, and signs of adequate intake. Demonstrated stimulation techniques to wake infant for feeding. very sleepy with hiccups. Advised to allow to rest for 30 minutes and attempt again. Call out before if infant wakes or rooting noted.
--- NOTE | 2020-06-21 10:40 | PC.NURSE ---
Mother called out for assist with feeding. Infant remains sleepy, demonstrated stimulation techniques to wake for feeding. Reviewed feeding cues, frequencies, duration of feedings, feeding elimination flow sheet, and signs of adequate intake. Assisted with infant to breast. Reviewed positioning/alignment in cross cradle, holding breast in U hold and guided asymmetrical latch on. was able to latch correctly within a few attempts. Demonstrated how to adjust latch more deeply while feeding. Advised to stimulate to keep infant awake and nursing for increased stimulation and increased intake. Infant nursed eagerly, with steady draws and [frequent/occasional] swallowing noted. Reviewed signs of a correct latch, effective nursing and suck swallow ratio. Infant was able to maintain latch without discomfort to mother. Nipple care reviewed, lanolin provided. Instructed mother to call out for RN assistance if she is unable to latch infant for feeding or she has discomfort with nursing. Instructed feeding should be initiated three hours from start of last feeding or if feeding cues are noted before. Mother voiced understanding of information shared.
[2020-06-21] MEDS: RHO(D) IMMUNE GLOBULIN 300 MCG SYRINGE IM (11:05)
[2020-06-21] MEDS: MEASLES,MUMPS,RUBELLA VACCINE 0.5 ML VIAL SUB-Q (11:06)
[2020-06-21 11:07] VITALS: BP 106/55; PULSE 85; RESP 18; TEMP 36.7; O2SAT 98
--- NOTE | 2020-06-21 11:33 | PM.OBPNVD ---
OB - PN: Subj Subjective Date/time seen: 06/21/20 11:33 s/p on 06/20. Doing well, pain is controlled. Lochia is decreasing. Breast feeding. Ambulating without issues. Tolerating diet. OB - PN: Obj Data Labs CBC & Chem 7: 06/21/20 04:43 Labs: Laboratory Results - last 24 hr 06/20/20 06/21/20 06/21/20 12:37 04:42 04:43 Hgb 11.3 L Hct 33.4 L POC Capillary Glucose 70 Blood Type O Negative Antibody Screen TNP Screen Negative Baby's Blood Type O pos Baby's ALONDRA Negative Doses of RhIg Required 1 OB - PN A/P Assessment and Plan (1) (normal spontaneous vaginal delivery): Code(s): O80 - Encounter for full-term uncomplicated delivery Status: Acute Assessment and Plan: Routine care Pain management Ambulate Desires to go home today (2) Gestational diabetes: Code(s): O24.419 - Gestational diabetes mellitus in , unspecified control Status: Acute Time Spent With Patient Time: Total time spent is greater than 50% in coordination of care (as documented) at patient's floor/unit and/or counseling patient: Exam Const: General: cooperative, healthy appearing, comfortable and no acute distress Resp: Effort & Inspection: normal respiratory effort and able to speak in complete sentences Cardio: Rate: regular rate GI: GI Palp: No abdominal tenderness and Yes Soft to palpation Neuro: General: oriented to person, oriented to place and oriented to time Psych: Appearance: grossly normal Mental Status: mental status grossly normal Speech and movement: Normal speech and movement present Affect: normal affect Attitude: cooperative Thought process: Normal thought process present Thought content: Yes Normal thought content present Insight: Good insight present (Psych) Judgement: Good judgement present (Psych)
--- NOTE | 2020-06-21 11:51 | PM.OBDSVD ---
DS: Admitting Diagnosis Admitting Diagnosis Admitting Diagnosis: Gestational Diabetes DS: Discharge Diagnosis Discharge Diagnosis (1) (normal spontaneous vaginal delivery): Code(s): O80 - Encounter for full-term uncomplicated delivery Status: Acute Assessment and Plan: Routine care Pain management Ambulate Desires to go home today (2) Gestational diabetes: Qualifiers: Gestational diabetes mellitus control: diet-controlled Trimester: third trimester Qualified Code(s): O24.410 - Gestational diabetes mellitus in , diet controlled Code(s): O24.419 - Gestational diabetes mellitus in , unspecified control Status: Acute OB - DS: Summary OB Procedures : None OB Procedures Intrapartum: Spontaneous Vag Delivery OB Procedures: : None Time Spent with Patient Time attestation: Total time spent providing and/or coordinating discharge services: Exam Const: General: cooperative, healthy appearing, comfortable, no acute distress, well developed, alert and awake Orientation/consciousness: oriented to person, oriented to place and oriented to time Resp: Effort & Inspection: normal respiratory effort, able to speak in complete sentences, normal respiratory pattern, no audible wheezes and no cough Cardio: Rate: regular rate GI: Inspection: normal to inspection Neuro: General: oriented to person, oriented to place and oriented to time Psych: Appearance: grossly normal Mental Status: mental status grossly normal Speech and movement: Normal speech and movement present Affect: normal affect Attitude: cooperative Thought process: Normal thought process present Insight: Good insight present (Psych) Judgement: Good judgement present (Psych) DS: Data Data Completed and Pending Pending studies at discharge: Pending at discharge 06/20/20 15:10 Surgical [PTH] Routine Labs on day of discharge: Labs from last 24 hours 06/21/20 06/21/20 06/20/20 04:43 04:42 12:37 Hgb 11.3 L Hct 33.4 L POC Capillary Glucose 70 Blood Type O Negative Antibody Screen TNP Screen Negative Baby's Blood Type O pos Baby's ALONDRA Negative Doses of RhIg Required 1 Discharge Plan Discharge Attending physician on discharge: Mil Ramirez Discharging Clinician: Mil Ramirez Patient Disposition: Home, Self-Care Activity: may shower, as tolerated and pelvic rest Diet: regular Patient Instructions: Antibiotic Form Stand Alone Forms: General Discharge Information Follow-up/Referrals: Mil Ramirez DO [Physician] - Discharge Medications: New docusate sodium 100 mg Capsule 100 mg PO BID PRN (Reason: Constipation) Qty: 60 RF: 0 ibuprofen 600 mg Tablet 600 mg PO Q6H PRN (Reason: Cramping) Qty: 90 RF: 0 Continued ferrous sulfate 325 mg (65 mg iron) Tablet 325 mg PO BID RF: 0 PNV cmb#95-ferrous fumarate-FA [] 28 mg iron- 800 mcg Tablet 1 tablet PO DAILY RF: 0 Date of admission: 06/20/20 06:35 Primary Care Provider: PHYSICIAN,DROP MACHINE OPERATOR Admitting Provider: Mil Ramirez Attending physician on admission: Mil Ramirez Condition: Stable
--- NOTE | 2020-06-21 14:10 | PC.NURSE ---
Patient viewed the discharge video Mother & Baby Care, The First Two Weeks . Patient was given the opportunity and encouraged to ask questions. Patient verbalized understanding of information shared and has been given the mother/baby guide for home reference.
[2020-06-22 09:06] VITALS: BP 117/72; PULSE 84; RESP 16; TEMP 36.6; O2SAT 98
== END 2020-06-21 17:15 | disposition home or self-care (01) | DRG 807 ==
LOC: ANHLDR 07:27 → ANHOB2 19:03
PROVIDERS: Admitting Provider Obstetrics & Gynecology; Visit Provider Obstetrics & Gynecology
DX: O24.420 Gestational diabetes mellitus in childbirth, diet controlled (principal); Z37.0 Single live birth; Z3A.39 39 weeks gestation of pregnancy; O70.1 Second degree perineal laceration during delivery
CPT/HCPCS: 36415; 82948; 85014; 85018; 85025; 85461; 86592; 86850; 86900; 86901; 88307; 90384; 90710; A9270; J0290; J2590; J2790; J2795; J7120

== ENCOUNTER 2022-01-30 09:41 | Outpatient (RCR) | payer OTHER, SELFPAY ==
[2022-01-30 10:00] LABS: Basophils Percent Auto 0.2 % (0.2-1.2); Eosinophils Absolute Auto 0.1 K/mm3 (0-0.3); Hematocrit 34.5 % (37.0-47.0); Hemoglobin 11.2 g/dL (12.0-15.0); Immature Granulocyte Absolute 0.07 K/mm3 (0.00-0.031); Immature Granulocyte Percent A 0.8 % (0-0.5); Lymphocytes Absolute Auto 0.99 K/mm3 (0.9-3.2); Lymphocytes Percent Auto 11.1 % (18.3-44.2); Mean Corpuscular HGB Conc 32.5 g/dl (32-36); Mean Corpuscular Hemoglobin 31.3 pg (26-34); Mean Corpuscular Volume 96.4 fl (80-100); Mean Platelet Volume 9.4 fl (7.4-10.4); Monocytes Absolute Auto 0.7 K/mm3 (0.1-0.6); Monocytes Percent Auto 8.2 % (2.6-8.5); Neutrophils Percent Auto 78.7 % (45.5-73.1); Platelet Count Result 223 k/mm3 (150-375); Red Blood Count 3.58 M/mm3 (4.2-5.4); Red Cell Distribution Width 12.6 % (11.5-14.5); White Blood Count 8.9 K/mm3 (4.5-10.0)
[2022-01-30 10:54] LABS: HIV 1/2 Ab P24 Ag Result Negative (Negative)
[2022-02-01] MEDS: RHO(D) IMMUNE GLOBULIN 300 MCG/2 ML SYRINGE IM (09:59)
== END 2022-04-30 23:59 | disposition home or self-care (01) ==
LOC: ANHLAB 09:41
PROVIDERS: Visit Provider Obstetrics & Gynecology
DX: Z11.4 Encounter for screening for human immunodeficiency virus [HIV] (principal); Z29.13 Encounter for prophylactic Rho(D) immune globulin; O36.0190 Maternal care for anti-D [Rh] antibodies, unspecified trimester, not applicable or unspecified; Z3A.00 Weeks of gestation of pregnancy not specified
CPT/HCPCS: 36415; 85025; 85461; 86703; 90384; 96372; G0432; J2790

== ENCOUNTER 2022-04-04 08:19 | Emergency (ER) | payer OTHER, SELFPAY ==
[2022-04-04 08:29] VITALS: BP 109/71; PULSE 97; RESP 16; TEMP 36.6; O2SAT 100
--- NOTE | 2022-04-04 08:32 | ED.URI ---
HPI - URI/Sore Throat General Chief Complaint: Upper Respiratory Infection Stated Complaint: cough, congestion Time Seen by Provider: 04/04/22 08:30 Source: patient Mode of arrival: ambulatory Limitations: no limitations History of Present Illness HPI Narrative: Radha is a 32-year-old female patient presenting to the clinic today who is 30 weeks she reports that she has had cough and congestion since December. Reports that her family has dealt with COVID, influenza a, and RSV over the last several months. She states that she has this lingering cough and congestion with sinus pressure. Is having some green nasal discharge with this. Denies any recent fever does complain of some mild shortness of breath. No history of asthma or COPD. She is a nonsmoker. MD elicited complaint: cough, rhinorrhea, nasal congestion and sinus pain Related Data Home Medications Medication Instructions Recorded Confirmed ferrous sulfate 325 mg (65 mg 325 mg PO BID 05/04/20 04/04/22 iron) tablet vit no.95-ferrous 1 tablet PO DAILY 05/04/20 04/04/22 fumarate 28 mg-folic acid 800 mcg tablet () Allergies Allergy/AdvReac Type Severity Reaction Status Date / Time No Known Allergies Allergy Verified 04/04/22 08:28 Review of Systems Review of Systems: Pertinent positives per HPI. Patient denies any fever, chills, rash, headache, visual changes, dizziness, cough, shortness of breath, chest pain, palpitations, nausea, vomiting, diarrhea, constipation, abdominal pain, or any urinary issues. PMFSH Past Medical History Medical History Gestational diabetes Irregular periods Miscarriage Surgical History Surgical History No significant past surgical history Family History Family History Grandparent Diabetes type 2, controlled Lung cancer Breast cancer Leukemia Mother Breast cancer Social History Social History Smoking status: Never smoker Alcohol intake: never Substance use: never Gender identity (if verbalized by the patient): Female Spiritual care concerns: No Comments At the time of my signature, I reviewed and agree with the nursing past medical, surgical, social, and family history. There is no relevant family history pertinent to the patient complaint. Exam Narrative: General: Well-developed, well nourished, in no apparent distress-38 weeks Head: Normocephalic, atraumatic Eyes: Pupils equally round and reactive to light bilaterally, EOM intact, sclera and conjunctive clear, no discharge, lids normal Ears: TMs intact and clear, ear canals clear, no drainage, grossly hearing normal. Nose: Nares patent, clear nasal discharge, moderate to severe inflammation, maxillary and frontal sinus tenderness. Mouth: Oral pharynx without lesions or masses, good dentition, MMM. Postnasal drip Neck: Supple, trachea midline, no enlargement of anterior or posterior cervical nodes, no thyroid masses or goiter palpable. Cardio: Regular rate and rhythm, s1 and s2 normal, no murmur appreciated. Resp: Lungs sounds tight but otherwise clear, no rhonchi, rales, wheezing or rubs Course Course Emergency Course: Portions of this record may have been created with voice recognition software. Level of Care: Express Care Visit Vital Signs Vital signs: Vital Signs Temperature 36.6 C 04/04/22 08:29 Pulse Rate 97 04/04/22 08:29 Respiratory Rate 16 04/04/22 08:29 Blood Pressure 109/71 04/04/22 08:29 Pulse Oximetry 100 04/04/22 08:29 Temperature 36.6 C 04/04/22 08:29 Pulse Rate 97 04/04/22 08:29 Respiratory Rate 16 04/04/22 08:29 Blood Pressure 109/71 04/04/22 08:29 Pulse Oximetry 100 04/04/22 08:29 Naima
== END 2022-04-04 08:42 | disposition home or self-care (01) ==
PROVIDERS: Emergency Provider Nurse Practitioner Family
DX: J01.90 Acute sinusitis, unspecified (principal)
CPT/HCPCS: 99213; G0463

== ENCOUNTER 2022-04-05 22:14 | Observation (INO) | payer OTHER, SELFPAY ==
--- NOTE | 2022-04-05 22:49 | PC.NURSE ---
ROM plus negative. Dr. Wood called and made aware of pt's complaints of leaking fluid. Reactive NST with no Contractions. Orders to d/c patient home
--- NOTE | 2022-04-05 23:00 | PC.NURSE ---
Discharge instructions reviewed with patient. Instructions to retrun with DFM, Kick count paper given, Vaginal bleeding, contractions, or leaking/gushing of fluid. Pt verbalized understanding and ambulatory to exit.
--- NOTE | 2022-04-06 07:57 | PM.OBTRLD ---
OB - Triage/Final Diagnosis Visit Information Date of evaluation: 04/05/22 Reason for evaluation: other (rule out rupture of membranes) Comments/Additional reasons for admission: I have assessed the risk for this patient, Radha Jimmy Isaiah, and determined that she would benefit from observation care.
== END 2022-04-05 23:00 | disposition home or self-care (01) ==
PROVIDERS: Admitting Provider Student in an Organized Health Care Education/Training Program; Visit Provider Student in an Organized Health Care Education/Training Program
DX: O42.90 Premature rupture of membranes, unspecified as to length of time between rupture and onset of labor, unspecified weeks of gestation (principal); Z3A.00 Weeks of gestation of pregnancy not specified
CPT/HCPCS: 84112; G0378; G0379

== ENCOUNTER 2022-04-10 17:33 | Observation (INO) | payer OTHER, SELFPAY ==
--- NOTE | 2022-04-10 18:55 | PC.NURSE ---
Dejan MARIA at bedside PT states she felt a gush of fluid. No fluid noted.
--- NOTE | 2022-04-10 19:24 | PC.NURSE ---
ROM plus positive with visible blood present.
[2022-04-10 20:26] VITALS: RESP 16; TEMP 36.3
--- NOTE | 2022-04-10 20:52 | PC.NURSE ---
RNDejan at bedside PT states her contractions have become more intense, sve performed to reassure no cervical change. SVE same as admission.
--- NOTE | 2022-04-10 21:08 | PC.NURSE ---
Dejan MARIA at bedside PO hydration encouraged.
--- NOTE | 2022-04-10 21:50 | OBADM ---
This patient, Radha Colon, admitted to the OB room Labor/Delivery/Recovery 105 for observation. Patient/family oriented to hospital policies and general routines including ID bracelet, bed and alarms, visiting hours, pain management, procedures, bathroom and other care routines, personal items, smoking policy, room service/diet, and visiting hours. Patient/Family are encouraged to report perceived risks to care and to ask questions if they do not understand what they are told or what they should do.
--- NOTE | 2022-04-11 00:28 | PC.NURSE ---
Dejan MARIA at bedside, PO hydration encouraged.
--- NOTE | 2022-04-11 14:13 | PM.OBTRLD ---
OB - Triage/Final Diagnosis Visit Information Reason for evaluation: threatened labor Comments/Additional reasons for admission: I have assessed the risk for this patient, Radha Colon, and determined that she would benefit from observation care. Evaluation Vital signs: Vital Signs - 24 hr 04/10/22 21:49 04/10/22 20:26 Temperature 97.4 F L Respiratory Rate 16 Oxygen Delivery Room Air
== END 2022-04-10 22:06 | disposition home or self-care (01) ==
PROVIDERS: Admitting Provider Obstetrics & Gynecology; Visit Provider Obstetrics & Gynecology
DX: O47.1 False labor at or after 37 completed weeks of gestation (principal); Z3A.38 38 weeks gestation of pregnancy
CPT/HCPCS: 84112; G0378; G0379

== ENCOUNTER 2022-04-11 08:17 | Inpatient (IN) | payer OTHER, SELFPAY ==
[2022-04-11] VITALS (16 sets, daily range): BP systolic 97–129; BP diastolic 49–80; PULSE 54–85; RESP 18; TEMP 36.7–36.9; O2SAT 96–100
[2022-04-11] MEDS: AMPICILLIN 2 GM/NS 100 ML 2 GM/100 ML BAG IVPB (08:46)
[2022-04-11] MEDS: LACTATED RINGERS 1,000 ML 125 ML IV CONT (08:47)
[2022-04-11 08:54] LABS: Basophils Percent Auto 0.2 % (0.2-1.2); Eosinophils Absolute Auto 0.1 K/mm3 (0-0.3); Eosinophils Percent Auto 0.5 % (0-4.4); Hematocrit 31.9 % (37.0-47.0); Hemoglobin 10.4 g/dL (12.0-15.0); Immature Granulocyte Absolute 0.11 K/mm3 (0.00-0.031); Immature Granulocyte Percent A 0.9 % (0-0.5); Lymphocytes Absolute Auto 0.86 K/mm3 (0.9-3.2); Lymphocytes Percent Auto 6.9 % (18.3-44.2); Mean Corpuscular HGB Conc 32.6 g/dl (32-36); Mean Corpuscular Hemoglobin 28.8 pg (26-34); Mean Corpuscular Volume 88.4 fl (80-100); Mean Platelet Volume 10.2 fl (7.4-10.4); Monocytes Absolute Auto 0.9 K/mm3 (0.1-0.6); Monocytes Percent Auto 7.5 % (2.6-8.5); Neutrophils Absolute Auto 10.4 K/mm3 (1.3-6.7); Platelet Count Result 217 k/mm3 (150-375); Red Blood Count 3.61 M/mm3 (4.2-5.4); Red Cell Distribution Width 13.9 % (11.5-14.5); White Blood Count 12.4 K/mm3 (4.5-10.0)
[2022-04-11 09:01] LABS: Glucose Point of Care 102 mg/dl (65-105)
[2022-04-11] MEDS: OXYTOCIN 30 UNITS/NS 500 ML 30 UNITS/500 ML BAG 999 UNITS IV CONT (09:12)
[2022-04-11] MEDS: OXYTOCIN 30 UNITS/NS 500 ML 30 UNITS/500 ML BAG 125 UNITS IV CONT (09:38)
--- NOTE | 2022-04-11 10:03 | WPDHPUPDATE1 ---
History and Physical Update Update Date/Time: 04/11/22 10:03 32 yo at 39w0d who presents in labor. Pt reported painful contractions since the day prior. She reports good movement. She denies any bleeding. pt is complicated by A1GDM and Rh negative status. History and Physical has been reviewed, including an updated exam of the patient. There are NO changes in the patient's condition. Risks, benefits, and alternatives have been discussed and questions answered. Patient agrees to proceed with procedure. A/P: admit to L&D routine admission orders Rh-, will need rhogam GBS positive, will start abx cvx 8 cm FHT category 1 admit for expectant managment
--- NOTE | 2022-04-11 10:04 | PM.OBPRVD ---
OB - Delivery Note Procedure Procedure: Patient pushed for a spontaneous vaginal delivery. Nuchal cord x 1 was noted and reduced easily. The fetus was delivered atraumatically and placed on the maternal abdomen. The cord was clamped and cut after 1 minute of life. The cord was double clamped and cut and a segment of cord was collected for cord gases. Cord blood was collected for blood type and Coomb's testing. The placenta delivered spontaneously and was noted to be intact. The perineum was inspected and there was a 1st degree perineal laceration. The laceration was repaired with 3-0 vicryl in the usual fashion. The uterus was firm and good hemostasis was noted. The patient and fetus were stable in the delivery room. Delivery monitor: External FHT Route of delivery: Episiotomy description: None Delivery repair: vicryl Specimen: No Quantitative Blood Loss (ml): 250 Anesthesia type: Local Disposition: Floor () Complications: No immediate complications Baby Date of : 04/11/22 Weeks of gestation at delivery: 39 gender: Male Weight (pounds): 7 Weight (ounces): 14 presentation: vertex position: Right Occiput Anterior Placenta delivery description: Spontaneous Cord Vessel Description: Nuchal Cord score one minute: 8 score five minutes: 8 AMG Delivery Billing Delivery Delivery: Delivery Charge
[2022-04-11] MEDS: WITCH HAZEL 40 PADS 1 PAD TOPICAL (11:34)
[2022-04-11] MEDS: IBUPROFEN 600 MG TABLET PO ×2 (11:34→20:18)
[2022-04-11] MEDS: BENZOCAINE 20% AER SPR (*SP) 56 GM CAN 1 SPRAY TOPICAL (11:34)
[2022-04-11] MEDS: ACETAMINOPHEN 325 MG TABLET 650 MG PO (14:02)
[2022-04-11 15:50] LABS: Rapid Plasma Reagin Non-Reactive (NonReactive)
[2022-04-12 01:30] VITALS: BP 96/52; PULSE 68; RESP 16; TEMP 36.7; O2SAT 98
[2022-04-12 05:22] VITALS: BP 93/54; PULSE 65; RESP 16; TEMP 36.7; O2SAT 97
[2022-04-12 05:48] LABS: Hematocrit 29.2 % (37.0-47.0); Hemoglobin 9.1 g/dL (12.0-15.0)
[2022-04-12] MEDS: POLYSACCHARIDE IRON COMPLEX 150 MG CAPSULE PO ×2 (07:57→17:33)
[2022-04-12] MEDS: MULTIVIT/MIN/PREN/FOL AC/IRON TABLET 1 TAB PO (07:57)
[2022-04-12] MEDS: IBUPROFEN 600 MG TABLET PO ×3 (07:58→19:00)
[2022-04-12] MEDS: DOCUSATE SODIUM 100 MG CAPSULE PO ×2 (07:58→17:33)
--- NOTE | 2022-04-12 09:02 | PM.OBPNVD ---
OB - PN: Subj Subjective Date/time seen: 04/12/22 09:02 Patient comments: no complaints, pain well controlled and tolerating diet feeding status: exclusively breast feeding Narrative: patient doing well this AM. No complaints. Pain is well controlled. She reports minimal bleeding. She is ambulating and voiding without difficulty. She is tolerating PO. She denies N/V, fever, chills. OB - PN: Obj Data Labs 04/12/22 04:50 Labs: Laboratory Results - last 24 hr 04/11/22 04/11/22 04/12/22 08:40 08:40 04:50 Hgb 9.1 L Hct 29.2 L RPR Non-reactive Blood Type O Negative Antibody Screen Positive Antibody Identification Passive Due to RH Imm Glob Antigen Identification Cancelled ALONDRA, IgG Interpret Not Performed ALONDRA, Poly Interpret Negative ALONDRA, Complement Interp Not Performed 04/12/22 05:27 Hgb Hct RPR Blood Type O Negative Antibody Screen Positive Antibody Identification Antigen Identification ALONDRA, IgG Interpret Not Performed ALONDRA, Poly Interpret Neg ALONDRA, Complement Interp Not Performed OB - PN A/P Plan day: 1 Plan: routine care Comments: patient doing well H/H stable circumcision consented for this AM. will proceed with infant circumcision continue routine care Time Spent With Patient Time: Total time spent is greater than 50% in coordination of care (as documented) at patient's floor/unit and/or counseling patient: Time with patient: less than 15 minutes Review of Systems Review of Systems: All systems reviewed & are unremarkable except as noted in HPI and below Exam Const: General: comfortable and no acute distress Resp: Effort & Inspection: normal respiratory effort Cardio: Rate: regular rate GI: GI Palp: Yes Soft to palpation and No Tenderness to palpation present (GI) Auscultation: normal bowel sounds Other: fundus firm and below umbilicus. Psych: Affect: normal affect
--- NOTE | 2022-04-12 09:03 | PM.OBDSVD ---
DS: Admitting Diagnosis Discharge Date 04/13/22 Admitting Diagnosis intrauterine at term gestational diabetes DS: Discharge Diagnosis Discharge Diagnosis (1) Term : Code(s): Z34.90 - Encounter for supervision of normal , unspecified, unspecified trimester Status: Acute (2) Gestational diabetes: Qualifiers: Gestational diabetes mellitus control: diet-controlled Trimester: third trimester Qualified Code(s): O24.410 - Gestational diabetes mellitus in , diet controlled Code(s): O24.419 - Gestational diabetes mellitus in , unspecified control Status: Acute OB - DS: Summary OB Procedures : None OB Procedures Intrapartum: Spontaneous Vag Delivery OB Procedures: : None Peripartum Data Infant Delivery Method: Natural Vaginal Laceration Description: Perineal - 1st Degree Episiotomy description: None complications: none Status at Discharge Functional status at discharge: independent ambulation Overall status at discharge: patient is back to baseline Time Spent with Patient Time attestation: Total time spent providing and/or coordinating discharge services: Time spent: Less than 30 minutes Exam Const: General: comfortable and no acute distress Resp: Effort & Inspection: normal respiratory effort Auscultation: clear to auscultation bilaterally Cardio: Rate: regular rate GI: GI Palp: Yes Soft to palpation Auscultation: normal bowel sounds Other: Fundus firm below umbilicus Psych: Appearance: grossly normal Mental Status: mental status grossly normal Affect: normal affect DS: Data Data Completed and Pending Labs on day of discharge: Labs from last 24 hours 04/12/22 04/12/22 04/11/22 05:27 04:50 08:40 Hgb 9.1 L Hct 29.2 L RPR Blood Type O Negative O Negative Antibody Screen Positive Positive Antibody Identification Pending Passive Due to RH Imm Glob Antigen Identification Pending Cancelled ALONDRA, IgG Interpret Not Performed Not Performed ALONDRA, Poly Interpret Neg Negative ALONDRA, Complement Interp Not Performed Not Performed Screen Pending Baby's Blood Type Pending Baby's ALONDRA Pending Doses of RhIg Required Pending 04/11/22 08:40 Hgb Hct RPR Non-reactive Blood Type Antibody Screen Antibody Identification Antigen Identification ALONDRA, IgG Interpret ALONDRA, Poly Interpret ALONDRA, Complement Interp Screen Baby's Blood Type Baby's ALONDRA Doses of RhIg Required Discharge Plan Discharge Discharging Clinician: Gerson Wood Patient Disposition: Home, Self-Care Activity: as tolerated and pelvic rest Diet: regular Discharge Instructions: Education: Mom and Baby Guide Given to: Mother Follow-Up: Call your delivering provider's office for an appointment to be seen in: 4 Weeks Mom and baby should come to the [facility] for the follow-up appointment. Appointment Date/Time: Saturday, April 16, 2022 at 11:00 a.m. What to expect at your follow-up visit: Blood Pressure Check Physical Assessment Call [phone] if you are unable to keep your appointment time. BREAST CARE: * Wear a snug supportive bra. * For engorgement discomfort: Breast Feeding: * Apply warm moist washcloths * Express milk as needed to relieve engorgement * Wear loose clothing * For sore nipples: * Identify correct latch-on * Apply warm moist washcloths before and after nursing * Air dry nipples after nursing * May apply Lansinoh cream to nipples EPISIOTOMY/PERINEAL CARE: * Until bleeding stops, use your vincent bottle after urinating * Change your pad frequently throughout the day * You may take sitz baths several times a day (fill your bathtub with warm water and soak for 20 minutes.) Do NOT bathe in the water * No tub baths until seen by your physi
[2022-04-12 09:05] VITALS: BP 110/60; PULSE 80; RESP 16; TEMP 37.7; O2SAT 100
[2022-04-12] MEDS: RHO(D) IMMUNE GLOBULIN 300 MCG/2 ML SYRINGE IM (14:15)
[2022-04-12] MEDS: ACETAMINOPHEN 325 MG TABLET 650 MG PO (19:00)
[2022-04-12 20:00] VITALS: BP 108/67; PULSE 68; RESP 16; TEMP 37.1
[2022-04-13 08:00] VITALS: PULSE 90; RESP 18; O2SAT 100
[2022-04-13 08:35] VITALS: BP 116/73; PULSE 90; RESP 18; TEMP 37; O2SAT 100
--- NOTE | 2022-04-13 08:58 | P.DS_ITS ---
DS: Admitting Diagnosis Discharge Date 04/13/2022 Admitting Diagnosis OB - DS: Summary OB Procedures : None OB Procedures Intrapartum: Spontaneous Vag Delivery OB Procedures: : None Time Spent with Patient Time attestation: Total time spent providing and/or coordinating discharge services: DS: Data Data Completed and Pending Labs on day of discharge: Labs from last 24 hours 04/12/22 05:27 Blood Type O Negative Antibody Screen Positive Antibody Identification Inconclusive Antigen Identification Not Reportable ALONDRA, Poly Interpret Neg Screen Negative Baby's Blood Type A pos Baby's ALONDRA Positive Doses of RhIg Required 1 Discharge Plan Discharge Discharging Clinician: Gerson Wood Patient Disposition: Home, Self-Care Activity: as tolerated and pelvic rest Diet: regular Patient Instructions: Antibiotic Form, Vaginal Delivery (DC) Stand Alone Forms: General Discharge Information Follow-up/Referrals: Payal Castro MD [Physician] - 4 Weeks Discharge Medications: New ibuprofen 600 mg Tablet 600 mg PO Q6H PRN (Reason: Cramping) Qty: 30 0RF acetaminophen [Mapap (acetaminophen)] 325 mg Tablet 650 mg PO Q6H PRN (Reason: Mild Pain (1-3) Or Headache) Qty: 30 0RF Continued prednisone 20 mg tablet 40 mg PO DAILY 5 Days Qty: 10 0RF albuterol sulfate 90 mcg/actuation HFA aerosol inhaler 2 puff inhalation Q4-6H PRN (Reason: shortness of breath or wheezing) 30 Days Qty: 8.5 0RF amoxicillin-pot clavulanate 875-125 mg tablet 1 tablet PO Q12H 10 Days Qty: 20 0RF ferrous sulfate 325 mg (65 mg iron) Tablet 325 mg PO BID PNV cmb#95-ferrous fumarate-FA [] 28 mg iron- 800 mcg Tablet 1 tablet PO DAILY (DME) OneTouch Verio test strips Strip See Rx Instructions .Route Qty: 100 1RF Rx Instructions: As directed Date of admission: 04/11/22 08:17 Primary Care Provider: PHYSICIAN,BICYCLE REPAIR TECHNICIAN Admitting Provider: Payal Castro Attending physician on admission: Payal Castro Condition: Stable
[2022-04-13] MEDS: IBUPROFEN 600 MG TABLET PO (10:49)
[2022-04-13] MEDS: POLYSACCHARIDE IRON COMPLEX 150 MG CAPSULE PO (10:49)
[2022-04-13] MEDS: MULTIVIT/MIN/PREN/FOL AC/IRON TABLET 1 TAB PO (10:49)
[2022-04-13] MEDS: DOCUSATE SODIUM 100 MG CAPSULE PO (10:50)
--- NOTE | 2022-04-13 13:07 | PC.NURSE ---
Patient was given the opportunity to view the discharge video Mother & Baby Care, The First Two Weeks and to ask questions. Patient declined viewing the video and has been given the mother/baby guide for home reference.
[2022-04-16 11:25] VITALS: BP 99/64; PULSE 93; RESP 20; TEMP 37.4; O2SAT 99
== END 2022-04-13 14:30 | disposition home or self-care (01) | DRG 807 ==
LOC: ANHOB2 04-13 13:01 → ANHLDR 04-17 08:44 → ANHOB2 04-17 08:44
PROVIDERS: Obstetrics & Gynecology; Admitting Provider Student in an Organized Health Care Education/Training Program; Visit Provider Obstetrics & Gynecology
DX: O24.429 Gestational diabetes mellitus in childbirth, unspecified control (principal); Z37.0 Single live birth; O99.824 Streptococcus B carrier state complicating childbirth; O69.81X0 Labor and delivery complicated by cord around neck, without compression, not applicable or unspecified; O70.0 First degree perineal laceration during delivery; O24.420 Gestational diabetes mellitus in childbirth, diet controlled; O77.0 Labor and delivery complicated by meconium in amniotic fluid; Z3A.39 39 weeks gestation of pregnancy
CPT/HCPCS: 36415; 82948; 85014; 85018; 85025; 85461; 86592; 86850; 86880; 86900; 86901; 86902; 90384; A9270; J0290; J2590; J2790; J2795; J7120

== ENCOUNTER 2022-12-03 07:59 | Emergency (ER) | payer OTHER, SELFPAY ==
--- NOTE | ~2022-12-03 | US_ITS ---
US breast LT complete INDICATION: Left breast pain. Breast feeding. TECHNIQUE: Dedicated complete left breast ultrasound including all 4 quadrants in the subareolar loca tion COMPARISON: No prior studies for comparison. FINDINGS: The left breast is composed of normal heterogeneous echotexture without focal solid or cyst ic mass. IMPRESSION: 1: Normal left breast ultrasound. BI-RADS CATEGORY 1 - NEGATIVE Reviewed, dictated and finalized at location A.
[2022-12-03 08:07] VITALS: BP 132/72; PULSE 108; RESP 13; TEMP 36.8; O2SAT 99
[2022-12-03 08:18] VITALS: PULSE 107
[2022-12-03] MEDS: HYDROcodone/acetaminophen (*CRX) 5-325 MG TABLET 1 TAB PO (08:30)
[2022-12-03] MEDS: IBUPROFEN 400 MG TABLET 800 MG PO (08:30)
[2022-12-03 08:34] LABS: Basophils Percent Auto 0.1 % (0.2-1.2); Eosinophils Percent Auto 0.1 % (0-4.4); Hematocrit 42.1 % (37.0-47.0); Hemoglobin 13.8 g/dL (12.0-15.0); Immature Granulocyte Percent A 0.5 % (0-0.5); Lymphocytes Absolute Auto 0.75 K/mm3 (0.9-3.2); Lymphocytes Percent Auto 3.6 % (18.3-44.2); Mean Corpuscular HGB Conc 32.8 g/dl (32-36); Mean Corpuscular Hemoglobin 30.7 pg (26-34); Mean Corpuscular Volume 93.6 fl (80-100); Mean Platelet Volume 9.5 fl (7.4-10.4); Monocytes Absolute Auto 1.5 K/mm3 (0.1-0.6); Monocytes Percent Auto 7.3 % (2.6-8.5); Neutrophils Absolute Auto 18.4 K/mm3 (1.3-6.7); Neutrophils Percent Auto 88.4 % (45.5-73.1); Platelet Count Result 227 k/mm3 (150-375); Red Cell Distribution Width 12.4 % (11.5-14.5); White Blood Count 20.9 K/mm3 (4.5-10.0)
[2022-12-03 08:43] LABS: Alanine Aminotransferase 21 U/L (6-35); Albumin Level 4.6 g/dL (3.5-5.1); Alkaline Phosphatase 63 U/L (38-126); Anion Gap 6 mmol/L (8-16); Aspartate Amino Transferase 30 U/L (14-36); Bilirubin,Total 1.4 mg/dL (0.2-1.3); Blood Urea Nitrogen 16 mg/dL (7-17); Carbon Dioxide 23 mmol/L (22-30); Chloride 103 mmol/L (98-107); Estimated CRCL calculation 120 ml/min; Estimated Glomerular Filt Rate > 60; Glucose 119 mg/dL (65-110); Potassium 3.6 mmol/L (3.4-5.0); Sodium 132 mmol/L (137-145)
[2022-12-03 09:01] VITALS: BP 112/64; PULSE 90; RESP 20; O2SAT 100
--- NOTE | 2022-12-03 10:33 | ED.GENADULT ---
HPI - General Adult General Chief complaint: Unspecified Stated complaint: left breast pain - Time Seen by Provider: 12/03/22 08:09 History of Present Illness HPI narrative: Patient is a 32-year-old female who presents ER with pain to left breast. Occurred over the last day. Very tender to the superior aspect of the breast. No skin breakdown around the nipple. No erythema. No purulent drainage from the nipple. She endorses fevers at home. Related Data Home Medications Medication Instructions Recorded Confirmed ferrous sulfate 325 mg (65 mg 325 mg PO BID 05/04/20 04/10/22 iron) tablet vit no.95-ferrous 1 tablet PO DAILY 05/04/20 04/10/22 fumarate 28 mg-folic acid 800 mcg tablet () Allergies Allergy/AdvReac Type Severity Reaction Status Date / Time No Known Allergies Allergy Verified 12/03/22 08:07 Review of Systems Review of Systems: All systems reviewed & are unremarkable except as noted in HPI and below Constitutional: Constitutional: Reports chills, Denies fatigue and Reports fever(s) Respiratory: Respiratory: Denies cough and Denies dyspnea Gastrointestinal: Gastrointestinal: Denies abdominal pain, Denies nausea and Denies vomiting Integumentary/Breasts: Skin/Breast: Reports breast pain, Reports breast mass and Denies change in pigmentation PMFSH Past Medical History Medical History Gestational diabetes Irregular periods Miscarriage Surgical History Surgical History No significant past surgical history Family History Family History Grandparent Diabetes type 2, controlled Lung cancer Breast cancer Leukemia Mother Breast cancer Social History Social History Smoking status: Never smoker Second hand tobacco smoke exposure: No Alcohol intake: never Substance use: never Lack of Transportation: No Lack of Food: Never True Current Housing: I Have Housing Concerned About Future Housing: No Difficulty Paying Gas/Electric Bills: No Difficulty Paying for Meds: No Currently Unemployed: No Education: Decline to Answer Difficulty w/ Childcare or Family Care: No Living arrangements: with family Gender identity (if verbalized by the patient): Female Spiritual care concerns: No Exam Narrative: GENERAL: Well-appearing, well-nourished, and in no acute distress. HEAD: Normocephalic, atraumatic. CHEST: Clear to auscultation. No respiratory distress. HEART: Tachycardic and regular. Normal peripheral pulses. Breast exam: Left breast with tender induration to the superior aspect. No lateral or medial breast tenderness. No induration of the skin superficially and no erythema noted. No skin breakdown around the nipple and no drainage. ABDOMEN: Soft, nontender, nondistended, normal active bowel sounds. EXTREMITIES: Normal range of motion. No edema. SKIN: Warm, dry, no rash. NEURO: Alert and oriented x3. PSYCH: Normal mood and affect. Course Course Emergency Course: Discussed case with Dr. Castro the patient's OB. Recommends hot and cold compresses as well as scheduled Tylenol and ibuprofen. She would recommend the patient be started on dicloxacillin. Abscess ruled out on ultrasound. Patient educated on treatment plan and verbalized understanding. Vital Signs Vital signs: Vital Signs Temperature 98.3 F 12/03/22 08:07 Pulse Rate 108 H 12/03/22 08:07 Respiratory Rate 13 12/03/22 08:07 Blood Pressure 132/72 12/03/22 08:07 Pulse Oximetry 99 12/03/22 08:07 Oxygen Delivery Room Air 12/03/22 08:07 Temperature 98.3 F 12/03/22 08:07 Pulse Rate 99 12/03/22 10:45 Respiratory Rate 15 12/03/22 10:45 Blood Pressure 118/77 12/03/22 10:45 Pulse Oximetry 97 12/03/22 10:45 Oxygen
[2022-12-03 10:45] VITALS: BP 118/77; PULSE 99; RESP 15; O2SAT 97
== END 2022-12-03 10:46 | disposition home or self-care (01) ==
PROVIDERS: Emergency Provider Emergency Medicine
DX: N61.0 Mastitis without abscess (principal)
CPT/HCPCS: 36415; 76641; 80053; 85025; 99284; A9270

== ENCOUNTER 2023-03-04 19:35 | Emergency (ER) | payer OTHER, SELFPAY ==
--- NOTE | ~2023-03-04 | XR_ITS ---
EXAMINATION: XR chest 2V DATE: 03/04/2023 19:58 INDICATION: Chest and epigastric pain TECHNIQUE: PA and lateral views of the chest were obtained. COMPARISON: Chest radiograph dated 04/25/2005 FINDINGS: The lungs are clear with no focal airspace opacities, pulmonary edema, pleural effusion or pneumothor ax. The cardiomediastinal silhouette is normal. Mild S-shaped curvature of the thoracic spine. IMPRESSION: 1. No acute cardiopulmonary disease. Reviewed, dictated and finalized at location A. CTURAL ENGINEERING PROJECT MANAGER
--- NOTE | ~2023-03-04 | CT_ITS ---
EXAMINATION: CT abdomen pelvis w con DATE: 03/04/2023 22:26 INDICATION: Epigastric pain and transaminitis TECHNIQUE: Computed tomography (CT) of the abdomen and pelvis was performed with 100 mL Omnipaque-350 intravenous contrast. Automated exposure control and iterative reconstruction technique were employe d. The dose-length product was 481.65 mGy-cm. COMPARISON: None FINDINGS: Lung bases are clear. Heart size is normal. No pericardial or pleural effusion. Mild periportal edema at the liver. Gallbladder, spleen, pancreas and bilateral adrenal glands are normal. Small bilateral low-attenuation renal cysts the largest on the right measuring 1.1 cm. Bowels including the appendix are normal. Bladder, anteverted uterus and bilateral adnexa are unremarkable. Minimal amount of like ly physiologic free fluid in the cul-de-sac. No abscess or free intraperitoneal gas. Bones are unrema rkable. IMPRESSION: 1. Nonspecific mild periportal edema in the liver. This can be seen in the setting of acute hepatitis , congestive heart failure or secondary cardiac congestion, cholangitis and acute pyelonephritis. Reviewed, dictated and finalized at location A. AL HEALTH PRACTITIONER IMPRESSION: 1. Nonspecific mild periportal edema in the liver. This can be seen in the sett ing of acute hepatitis, congestive heart failure or secondary cardiac congestio n, cholangitis and acute pyelonephritis.
--- NOTE | 2023-03-04 19:36 | ECG_ITS ---
Measurements Intervals [place] Rate: 68 P: 67 WI: 143 QRS: 65 QRSD: 90 T: 58 QT: 416 QTc: 443 Interpretive Statements SINUS RHYTHM BASELINE WANDER- II, III, AVF, V2 NORMAL ECG NO PREVIOUS ECG AVAILABLE FOR COMPARISON Electronically Signed On 03-05-2023 6:05:22 WEB PORTAL DEVELOPER by Tim Livingston D.O.
[2023-03-04 19:54] VITALS: BP 101/56; PULSE 74; RESP 14; TEMP 36.7; O2SAT 99
[2023-03-04 21:30] LABS: Hematocrit 38.7 % (37.0-47.0); Hemoglobin 12.5 g/dL (12.0-15.0); Mean Corpuscular HGB Conc 32.3 g/dl (32-36); Mean Corpuscular Hemoglobin 30.4 pg (26-34); Mean Corpuscular Volume 94.2 fl (80-100); Mean Platelet Volume 9.4 fl (7.4-10.4); Platelet Count Result 279 k/mm3 (150-375); Red Blood Count 4.11 M/mm3 (4.2-5.4); Red Cell Distribution Width 11.9 % (11.5-14.5); White Blood Count 20.1 K/mm3 (4.5-10.0)
[2023-03-04 21:41] LABS: Alanine Aminotransferase 69 U/L (6-35); Albumin Level 4.5 g/dL (3.5-5.1); Alkaline Phosphatase 70 U/L (38-126); Anion Gap 11 mmol/L (8-16); Aspartate Amino Transferase 141 U/L (14-36); Bilirubin,Total 0.9 mg/dL (0.2-1.3); Blood Urea Nitrogen 16 mg/dL (7-17); Calcium 9.4 mg/dL (8.4-10.2); Carbon Dioxide 25 mmol/L (22-30); Chloride 101 mmol/L (98-107); Estimated CRCL calculation 118 ml/min; Estimated Glomerular Filt Rate > 60; Glucose 117 mg/dL (65-110); Lipase 112 U/L (23-300); Potassium 3.7 mmol/L (3.4-5.0); Sodium 137 mmol/L (137-145)
[2023-03-04 21:42] LABS: INR 0.9; Prothrombin Time 12.7 Seconds (11.1-14.7)
[2023-03-04 21:43] LABS: Partial Thromboplastin Time 28.2 SECONDS (22.3-36.8)
[2023-03-04] MEDS: SODIUM CHLORIDE 0.9% IV 1,000 ML 999 ML IV CONT (21:48)
[2023-03-04] MEDS: FAMOTIDINE 20 MG/2 ML VIAL IV PUSH (21:48)
[2023-03-04] MEDS: ONDANSETRON INJ 4 MG/2 ML VIAL IV PUSH (21:48)
[2023-03-04 21:52] LABS: Troponin I < 0.012 ng/mL (0.000-0.034)
[2023-03-04 21:57] LABS: Band Neutrophils Percent 4 % (0-6); Monocytes Percent Manual 8 % (3-9); Neutrophils Absolute Manual 16.88 K/mm3 (1.7-7.2); Neutrophils Percent Manual 80 % (46-73); Platelet Estimate Adequate (Adequate); Schistocytes None Seen (NORMAL); Total Cells Counted 100
[2023-03-04 22:08] LABS: D Dimer < 0.27 ug/mL (<0.48)
--- NOTE | 2023-03-04 22:16 | ED.ABDPAIN ---
HPI - Abdominal Pain General Chief Complaint: Chest Pain Stated Complaint: Chest Pain, Vomit, hurts to talk or breath Time Seen by Provider: 03/04/23 21:22 Source: patient Mode of arrival: ambulatory Limitations: no limitations History of Present Illness HPI narrative: This is a 33 year old female that presents to the ER for epigastric pain. Ongoing since dinner tonight. Reports associated nausea and vomiting. Pain is worse with deep breathing. Denies fever, chest pain, shortness of breath or lower extremity edema. Related Data Home Medications Medication Instructions Recorded Confirmed ferrous sulfate 325 mg (65 mg 325 mg PO BID 05/04/20 12/18/22 iron) tablet vit no.95-ferrous 1 tablet PO DAILY 05/04/20 12/18/22 fumarate 28 mg-folic acid 800 mcg tablet () Allergies Allergy/AdvReac Type Severity Reaction Status Date / Time No Known Allergies Allergy Verified 12/18/22 10:05 Review of Systems Review of Systems: CONSTITUTIONAL: Denies fever CARDIOVASCULAR: Denies chest pain, or edema. RESPIRATORY: Denies dyspnea. GASTROINTESTINAL: Reports abdominal pain, nausea, vomiting. Denies diarrhea. GENITOURINARY: Denies dysuria All systems reviewed & are unremarkable except as noted in HPI and below PMFSH Past Medical History Medical History Gestational diabetes Irregular periods Miscarriage Surgical History Surgical History No significant past surgical history Family History Family History Grandparent Diabetes type 2, controlled Lung cancer Breast cancer Leukemia Mother Breast cancer Social History Social History Smoking status: Never smoker Second hand tobacco smoke exposure: No Alcohol intake: never Substance use: never Lack of Transportation: No Lack of Food: Never True Current Housing: I Have Housing Concerned About Future Housing: No Difficulty Paying Gas/Electric Bills: No Difficulty Paying for Meds: No Currently Unemployed: No Education: Decline to Answer Difficulty w/ Childcare or Family Care: No Living arrangements: with family Gender identity (if verbalized by the patient): Female Spiritual care concerns: No Exam Narrative: GENERAL: Well-appearing, well-nourished, and in no acute distress. HEAD: Normocephalic, atraumatic. EYES: EOMI. CHEST: Clear to auscultation. No respiratory distress. No wheezes rales or rhonchi HEART: Regular rate and rhythm. No murmur heard. Normal peripheral pulses. ABDOMEN: Soft, nondistended, normal active bowel sounds. Tender to palpation of the epigastrium and right upper quadrant, without guarding EXTREMITIES: Normal range of motion. No edema. SKIN: Warm, dry, no rash. NEURO: No focal deficits. Alert and oriented x3. PSYCH: Normal mood and affect Course Course Emergency Course: Patient and family updated on work-up. Reevaluated. She is resting comfortably without any pain. Agrees with discharge home and close follow-up with gastroenterology Vital Signs Vital signs: Vital Signs Temperature 98.0 F 03/04/23 19:54 Pulse Rate 74 03/04/23 19:54 Respiratory Rate 14 03/04/23 19:54 Blood Pressure 101/56 L 03/04/23 19:54 Pulse Oximetry 99 03/04/23 19:54 Oxygen Delivery Room Air 03/04/23 19:54 Temperature 98.0 F 03/04/23 19:54 Pulse Rate 89 03/04/23 23:11 Respiratory Rate 15 03/04/23 23:11 Blood Pressure 111/74 03/04/23 23:11 Pulse Oximetry 100 03/04/23 23:11 Oxygen Delivery Room Air 03/04/23 23:09 MDM - Abdominal Pain MDM Narrative Medical decision making narrative: Patient presents to the emergency department for an episode of epigastric pain last night. Associated with nausea and vomiting. Patient is afebrile and nontoxic-appearing. Her
[2023-03-04 23:08] VITALS: PULSE 77; O2SAT 100
[2023-03-04 23:09] VITALS: O2SAT 100
[2023-03-04 23:11] VITALS: BP 111/74; PULSE 89; RESP 15; O2SAT 100
[2023-03-05] LABS: Appearance Urine Cloudy (Clear); Bacteria Urine None Seen /hpf; Bilirubin Urine Negative (Negative); Blood Urine Negative (Negative); Color Urine Yellow (Yellow); Glucose Urine UA Negative (Negative); Ketones Urine Negative (Negative); Leukocyte Esterase Ur Negative LEU/UL (Negative); Nitrate Urine Negative (Negative); Non Pathogenic Casts 0-2; Protein Urine Negative (Negative); RBC Urine 0-2 /hpf (0-2); Specific Grav Ur 1.021 (1.001-1.035); Squamous Epithelial Cell Urine Moderate /hpf (Few); WBC Urine 0-5 /hpf
[2023-03-05 00:10] LABS: Add Urine Microscopic? YES
[2023-03-05 00:16] LABS: Troponin I < 0.012 ng/mL (0.000-0.034)
[2023-03-05 01:10] VITALS: BP 106/75; PULSE 80; RESP 18; O2SAT 99
[2023-03-05 01:22] LABS: Hepatitis B Surface Antigen Negative (Negative)
[2023-03-05 01:29] LABS: HAV RESULT Negative (Negative); Hepatitis B Core IgM Result Negative (Negative)
[2023-03-05 01:44] LABS: Hepatitis C Virus Antibody Negative (Negative)
== END 2023-03-05 01:20 | disposition home or self-care (01) ==
PROVIDERS: Emergency Medicine; Emergency Provider Physician Assistant
DX: R10.13 Epigastric pain (principal); K76.89 Other specified diseases of liver
CPT/HCPCS: 36415; 71046; 74177; 80053; 80074; 81001; 81025; 83690; 84484; 85025; 85380; 85610; 85730; 93005; 96361; 96374; 96375; 99284; J2405; J7030; Q9967

== ENCOUNTER → 2023-03-08 08:15 | Outpatient (CLI) | payer OTHER, SELFPAY ==
--- NOTE | ~2023-03-08 | US_ITS ---
Limited Abdominal Sonogram: Real-time sonographic imaging of the right upper quadrant was performed. Clinical History: Abdominal pain, transaminitis Findings: The liver appears normal with no evidence of mass lesion or bile duct dilatation. Main por lilly vein demonstrates normal direction of flow. The gallbladder is well distended, and contains multi ple small layering gallstones. No gallbladder wall thickening evident. The common bile duct measures 3 mm. The visualized pancreas, aorta, and IVC are unremarkable. Right kidney measures 9.8 cm in calvin th, without evidence of hydronephrosis. Impression: Cholelithiasis. Reviewed, dictated and finalized at location M. RAL WOOL INSULATION SUPERVISOR Impression: Cholelithiasis.
== END ==
PROVIDERS: PCP Obstetrics & Gynecology; Visit Provider Obstetrics & Gynecology
DX: R10.13 Epigastric pain (principal); K80.20 Calculus of gallbladder without cholecystitis without obstruction
CPT/HCPCS: 76705

== ENCOUNTER 2023-03-14 17:13 | Emergency (ER) | payer OTHER, SELFPAY ==
[2023-03-14 17:16] VITALS: BP 120/66; PULSE 81; RESP 18; TEMP 36.1; O2SAT 100
--- NOTE | 2023-03-14 17:34 | PC.NURSE ---
rash noted to epigastric area that radiates around to back, rash with appearance of shingle rash
[2023-03-14 17:37] LABS: Basophils Absolute Auto 0.1 K/mm3 (0.0-0.1); Basophils Percent Auto 0.6 % (0.2-1.2); Eosinophils Absolute Auto 0.2 K/mm3 (0-0.3); Eosinophils Percent Auto 2.4 % (0-4.4); Hematocrit 39.6 % (37.0-47.0); Hemoglobin 12.7 g/dL (12.0-15.0); Immature Granulocyte Absolute 0.02 K/mm3 (0.00-0.031); Immature Granulocyte Percent A 0.2 % (0-0.5); Lymphocytes Absolute Auto 1.76 K/mm3 (0.9-3.2); Lymphocytes Percent Auto 19.5 % (18.3-44.2); Mean Corpuscular HGB Conc 32.1 g/dl (32-36); Mean Corpuscular Hemoglobin 30.6 pg (26-34); Mean Corpuscular Volume 95.4 fl (80-100); Mean Platelet Volume 9.7 fl (7.4-10.4); Monocytes Absolute Auto 0.7 K/mm3 (0.1-0.6); Monocytes Percent Auto 8.1 % (2.6-8.5); Neutrophils Absolute Auto 6.3 K/mm3 (1.3-6.7); Neutrophils Percent Auto 69.2 % (45.5-73.1); Platelet Count Result 279 k/mm3 (150-375); Red Blood Count 4.15 M/mm3 (4.2-5.4)
--- NOTE | 2023-03-14 17:42 | ED.ABDPAIN ---
HPI - Abdominal Pain General Chief Complaint: Abdominal Pain Stated Complaint: abd pain Time Seen by Provider: 03/14/23 17:19 Source: patient Mode of arrival: ambulatory Limitations: no limitations History of Present Illness HPI narrative: This is a 33 year old female that presents to the ER for epigastric pain. Ongoing over the last couple of hours. Reports an achy mid abdominal pain. Recently diagnosed with gallstones. Awaiting referral to general surgery. After eating Thanksgiving dinner she started to develop a similar pain to her last episode which prompted her to be seen. She also noticed a rash the last couple of days on her mid abdomen and some prodromal itching and discomfort. Denies fever, vomiting, or diarrhea. Related Data Home Medications Medication Instructions Recorded Confirmed vit no.95-ferrous 1 tablet PO DAILY 05/04/20 03/05/23 fumarate 28 mg-folic acid 800 mcg tablet () Allergies Allergy/AdvReac Type Severity Reaction Status Date / Time No Known Allergies Allergy Verified 03/05/23 10:31 Review of Systems Review of Systems: CONSTITUTIONAL: Denies fever GASTROINTESTINAL: Reports abdominal pain. Denies nausea, vomiting, or diarrhea. SKIN: Reports rash and itching. All systems reviewed & are unremarkable except as noted in HPI and below PMFSH Past Medical History Medical History Gestational diabetes Irregular periods Miscarriage Surgical History Surgical History No significant past surgical history Family History Family History Grandparent Diabetes type 2, controlled Lung cancer Breast cancer Leukemia Mother Breast cancer Social History Social History (Updated 03/05/23 @ 10:32 by Yokasta Santiago MA) Smoking status: Never smoker Second hand tobacco smoke exposure: No Alcohol intake: never Substance use: never Lack of Transportation: No Lack of Food: Never True Current Housing: I Have Housing Concerned About Future Housing: No Difficulty Paying Gas/Electric Bills: No Difficulty Paying for Meds: No Currently Unemployed: No Education: Decline to Answer Difficulty w/ Childcare or Family Care: No Living arrangements: with family Additional occupation/education comments: stay at home mom Gender identity (if verbalized by the patient): Female Spiritual care concerns: No Exam Narrative: GENERAL: Well-appearing, well-nourished, and in no acute distress. HEAD: Normocephalic, atraumatic. EYES: EOMI. CHEST: Clear to auscultation. No respiratory distress. No wheezes rales or rhonchi HEART: Regular rate and rhythm. No murmur heard. Normal peripheral pulses. ABDOMEN: Soft, nontender, nondistended, normal active bowel sounds. EXTREMITIES: Normal range of motion. No edema. SKIN: Warm, dry. Vesicular rash on an erythematous base in a group to the mid abdomen NEURO: No focal deficits. Alert and oriented x3. PSYCH: Normal mood and affect Course Course Emergency Course: Patient and family updated on workup and agree with plan of care Vital Signs Vital signs: Vital Signs Temperature 97 F L 03/14/23 17:16 Pulse Rate 81 03/14/23 17:16 Respiratory Rate 18 03/14/23 17:16 Blood Pressure 120/66 03/14/23 17:16 Pulse Oximetry 100 03/14/23 17:16 Temperature 97 F L 03/14/23 17:16 Pulse Rate 83 03/14/23 18:10 Respiratory Rate 20 03/14/23 18:10 Blood Pressure 116/80 03/14/23 17:45 Pulse Oximetry 100 03/14/23 18:10 MDM - Abdominal Pain MDM Narrative Medical decision making narrative: Patient presents to the emergency department for an episode of epigastric abdominal pain. At this time of arrival at the ER, her pain had largely subsided. Her abdominal exam is benign. She is afebrile and nontoxic appearing. Her vitals are stable. CBC
[2023-03-14 17:45] VITALS: BP 116/80; PULSE 75; RESP 14; O2SAT 99
[2023-03-14 17:46] VITALS: PULSE 75; RESP 19; O2SAT 100
[2023-03-14 17:48] LABS: Alanine Aminotransferase 68 U/L (6-35); Albumin Level 4.6 g/dL (3.5-5.1); Alkaline Phosphatase 71 U/L (38-126); Anion Gap 12 mmol/L (8-16); Aspartate Amino Transferase 91 U/L (14-36); Bilirubin,Total 0.6 mg/dL (0.2-1.3); Blood Urea Nitrogen 12 mg/dL (7-17); Calcium 9.5 mg/dL (8.4-10.2); Carbon Dioxide 26 mmol/L (22-30); Chloride 101 mmol/L (98-107); Estimated CRCL calculation 103 ml/min; Estimated Glomerular Filt Rate > 60; Glucose 107 mg/dL (65-110); Lipase 92 U/L (23-300); Potassium 3.8 mmol/L (3.4-5.0); Sodium 139 mmol/L (137-145)
[2023-03-14 18:10] VITALS: PULSE 83; RESP 20; O2SAT 100
[2023-03-14] MEDS: FAMOTIDINE 20 MG/2 ML VIAL IV PUSH (18:11)
--- NOTE | 2023-03-14 18:13 | PC.NURSE ---
pt refused tylenol because she reports she does not have any pain
[2023-03-14 18:25] LABS: Appearance Urine Cloudy (Clear); Bacteria Urine None Seen /hpf; Bilirubin Urine Negative (Negative); Blood Urine Negative (Negative); Color Urine Yellow (Yellow); Glucose Urine UA Negative (Negative); Ketones Urine Negative (Negative); Leukocyte Esterase Ur 1+ LEU/UL (Negative); Need Manual Microscopic Reviewed; Nitrate Urine Negative (Negative); Non Pathogenic Casts 0-2; Protein Urine Negative (Negative); RBC Urine 0-2 /hpf (0-2); Specific Grav Ur 1.017 (1.001-1.035); Squamous Epithelial Cell Urine Moderate /hpf (Few); WBC Urine 0-5 /hpf; pH Urine 7.5 (5.0-9.0)
[2023-03-14 18:26] LABS: Add Urine Microscopic? YES
[2023-03-14] MEDS: valACYclovir HCL 500 MG TABLET 1000 MG PO (19:20)
[2023-03-14 19:21] VITALS: BP 116/80; PULSE 84; RESP 19; O2SAT 99
== END 2023-03-14 19:22 | disposition home or self-care (01) ==
PROVIDERS: Emergency Provider Physician Assistant; PCP Nurse Practitioner Family
DX: K80.50 Calculus of bile duct without cholangitis or cholecystitis without obstruction (principal); B02.9 Zoster without complications
CPT/HCPCS: 36415; 80053; 81001; 81025; 83690; 85025; 96374; 99284; A9270